=== PATIENT | female | born 1970 | race Caucasian/White ===

== ENCOUNTER 2016-07-30 18:22 | Emergency (ER) | payer OTHER ==
[~2016-07-30] VITALS: Ht 165.1 cm; Wt 85.7 kg
[~2016-07-30 18:22] MED LIST: CIPRO500 M1 PO; FLOMAX0.4 M1 PO; VICODIN 5-3001 EACH PO; ZOFRAN ODT4 M1 SL
--- NOTE | 2016-07-30 19:13 | ED GENERAL ADULT ---
History of Present Illness General Chief Complaint: General Adult Stated Complaint: ANEMIA/WEAKNESS Source: patient, family, old records Exam Limitations: no limitations Vital Signs & Intake/Output Vital Signs & Intake/Output Vital Signs Date Time Temp Pulse Resp B/P B/P Pulse O2 O2 Flow FiO2 Mean Ox Delivery Rate 07/30 2109 98.7 76 18 136/69 99 07/30 1834 99.8 103 18 158/92 98 Room Air Allergies Coded Allergies: No Known Allergies (03/06/16) Reconcile Medications Cranberry Conc/C/Bacill Coag (Cranberry Tablet) (Unknown Strength) TABLET ( Unknown Dose) PO DAILY SUPPLEMENT (Reported) Ibuprofen (Advil) 200 MG CAPSULE 2 CAP PO PRN PAIN/INFLAMMATION (Reported) Iron Carb,Gl/FA/B12/C/Docusate (Ferralet 90 Tablet) 90 MG-1 MG-12 MCG-120 MG-50 MG TABLET 1 TAB PO DAILY SUPPLEMENT (Reported) Triage Note: RECEIVED 46 YO FEMALE WITH HX OF ANEMIA, C/O VAGINAL BLEEDING > THAN 10 DAYS. PT WAS 2 WEEKS LATE FOR PERIOD AND NOW IT WONT START. PT ALSO REPORTS LIGHTHEADEDNESS, PALPITATIONS, WEAKNESS, Triage Nurses Notes Reviewed? yes HPI: Patient states that she always has heavy menstrual cycles and that causes her to be a little bit anemic. Patient takes iron pills however she ran out of them and did not get them refilled. She was approximately 2 weeks late for her last menstrual cycle boat it started on July 16 and has not stopped since. Patient states that she changes her pad multiple times throughout the day. Patient has pelvic cramping that occasionally radiates through her back. Similar symptoms every month with her menstrual cycle. There are no aggravating or mitigating factors. At its worse she rates them as 7 out of 10. Patient noticed that she is now getting palpitations with exertion and dyspnea on exertion. There is no orthopnea. Patient states that she feels weak and fatigued. Patient states that she has difficulty focusing at work. Patient borrowed her son stated that and her resting heart rate is 80 and a increases to 145 when she climbs a flight of stairs. Patient states that it is requested that she had a blood transfusion once in the past however she refused it. Patient states that she is very reluctant have somebody else's blood traveling through her system. Past History Travel History Traveled to [place] past 21 day No Medical History Any Pertinent Medical History? see below for history Neurological: NONE EENT: NONE Cardiovascular: NONE Respiratory: NONE Gastrointestinal: NONE Hepatic: NONE Renal: NONE Musculoskeletal: NONE Psychiatric: NONE Endocrine: NONE Blood Disorders: NONE Cancer(s): NONE SACK SORTER/Reproductive: endometriosis, OVARIAN CYSTS FIBROIDS Surgical History Surgical History: non-contributory Psychosocial History What is your primary language Faroese Tobacco Use: Never used ETOH Use: occasional use Illicit Drug Use: denies illicit drug use Family History Hx Contributory? No Review of Systems Review of Systems Constitutional: Reports: see HPI, weakness. EENTM: Reports: no symptoms. Respiratory: Reports: see HPI, short of breath (WITH EXERTION). Cardiovascular: Reports: see HPI, palpitations. GI: Reports: no symptoms. Genitourinary: Reports: see HPI. Musculoskeletal: Reports: no symptoms. Skin: Reports: no symptoms. Neurological/Psychological: Reports: no symptoms. Hematologic/Endocrine: Reports: see HPI, bleeding. Immunologic/Allergic: Reports: no symptoms. All Other Systems: Reviewed and Negative Physical Exam Physical Exam General Appearance: well developed/nourished, alert, awake, anxious, mild distress Head: atraumatic, normal appearance Eyes: Bilateral: PERRL, EOMI, pale conjunctivae. Ears, Nose, Throat: normal pharynx, normal ENT inspection Neck: normal inspection, supple, full range of motion Respiratory: normal breath sounds, chest non-tender, no respiratory distress, lungs clear Cardiovascular: regular rate/rhythm, normal peripheral pulses Gastrointestinal: normal bowel sounds, soft, non-tender, no organomegaly Back: normal inspection, normal range of motion Extremities: normal capillary refill, normal range of motion, no edema Neurologic/Psych: no motor/sensory deficits, awake, alert, oriented x 3, normal gait, normal mood/affect Skin: intact, warm/dry, VERY PALE Lymphatic: no anterior cervical lupe Core Measures ACS in differential dx? No CVA/TIA Diagnosis: No Severe Sepsis Present: No Septic Shock Present: No Progress Differential Diagnoses I considered the following diagnoses in my evaluation of the patient: [ANEMIA, DYSFUNCTIONAL UTERINE BLEEDING, HEMORRHAGIA] Plan of Care: Orders Procedure Date/time Status URINALYSIS 07/31 1911 Complete HUMAN BETA HCG SCREEN 07/31 1911 Complete COMPREHENSIVE METABOLIC PANEL 07/31 1911 Complete CBC WITHOUT DIFFERENTIAL 07/31 1911 Complete TYPE & SCREEN (NOT X-MATCH) 07/31 1911 Complete EKG 07/30 1837 Active Laboratory Tests 07/30/162031: Urine Color YEL, Urine Clarity CLEAR, Urine pH 6.5, Ur Specific [place] 1.010, Urine Protein NEG, Urine Ketones NEG, Urine Nitrite NEG, Urine Bilirubin NEG, Urine Urobilinogen 0.2, Ur Leukocyte Esterase NEG, Ur Microscopic SEDIMENT EXAMINED, Urine RBC 5-10 H, Ur Epithelial Cells RARE, Urine Hemoglobin MOD H, Urine Glucose NEG 07/30/161936: Anion Gap 11, Estimated GFR > 60, BUN/Creatinine Ratio 15.7, Glucose 92, Calcium 9.1, Total Bilirubin 0.5, AST 32, ALT 47, Alkaline Phosphatase 56, Total Protein 6.0 L, Albumin 3.4 L, Globulin 2.6, Albumin/Globulin Ratio 1.3, Total Beta HCG NEGATIVE, CBC w Diff NO MAN DIFF REQ, RBC 2.63 L, MCV 70.6 L, MCH 22.1 L, RDW 19.8 H, MPV 7.8, Gran % 58.9, Lymphocytes % 27.0, Monocytes % 11.8 H, Eosinophils % 1.8, Basophils % 0.5, Absolute Granulocytes 3.4, Absolute Lymphocytes 1.6, Absolute Monocytes 0.7 H, Absolute Eosinophils 0.1, Absolute Basophils 0, PUBS MCHC 31.3 L Initial ED EKG: none Comments: Pros and cons of blood transfusion have been discussed with the patient and her . Patient will prefer to hold off on any blood transfusion at this time. Patient states that she will rest as much as possible and that she will contact Dr. Waite on Monday morning. Patient knows that she'll need an ultrasound. Patient also promises to return if her symptoms worsen and that she will reconsider a blood transfusion if that were to occur. Departure Departure Disposition: HOME OR SELF CARE Condition: Stable Clinical Impression Primary Impression: Symptomatic anemia Secondary Impressions: Dysfunctional uterine bleeding Menorrhagia Qualifiers: Menorrahagia type: with irregular cycle Qualified Code: N92.1 - Excessive and frequent menstruation with irregular cycle Referrals: RAMU CLAY,ROSA Piper (PCP/Family) CRISTAL CLAY,BLANCA Main Additional Instructions: FOLLOW UP WITH DR. WAITE ON MONDAY RETURN IF SYMPTOMS WORSEN OR FOR ANY CONCERNS Departure Forms: Customer Survey General Discharge Information Critical Care Note Critical Care Note Critical Care Time: non-applicable
[2016-07-30 19:43] LABS: ABSOLUTE BASOPHIL COUNT 0 /CUMM (0.0-0.2); ABSOLUTE EOSINOPHIL COUNT 0.1 /CUMM (0.0-0.7); ABSOLUTE GRANULOCYTE CT 3.4 /CUMM (1.4-6.5); ABSOLUTE LYMPH COUNT 1.6 /CUMM (1.2-3.4); ABSOLUTE MONOCYTE COUNT 0.7 /CUMM (0.10-0.60); BASOPHIL % 0.5 % (0.0-2.0); EOSINOPHIL % 1.8 % (0-5); GRANULOCYTE % 58.9 % (42.2-75.2); MEAN CORPUSCULAR HGB 22.1 PG (27.0-31.0); MEAN CORPUSCULAR HGB CONC 31.3 G/DL (33.0-37.0); MEAN CORPUSCULAR VOLUME 70.6 FL (81.0-99.0); MEAN PLATELET VOLUME 7.8 FL (7.4-10.4); PLATELET COUNT 262 /CUMM (130-400); RBC DISTRIBUTION WIDTH 19.8 % (11.5-14.5); RED BLOOD CELL CT 2.63 /CUMM (4.20-5.40); WHITE BLOOD CELL COUNT 5.8 /CUMM (4.8-10.8)
[2016-07-30 20:08] LABS: HEMATOCRIT 18.6 % (37-47)
[2016-07-30] MEDS ORDERED: FERRALET 90 TA1 EACH PO (20:30)
[2016-07-30] MEDS ORDERED: CRANBERRY TABL1 EACH PO (20:30)
[2016-07-30] MEDS ORDERED: ADVIL200 M1 PO (20:31)
[2016-07-30 21:09] VITALS: BP 136/69
== END 2016-07-30 21:36 ==
LOC: ERH 18:22
PROVIDERS: Emergency Medicine
DX: D64.9 Anemia, unspecified (principal); N93.8 Other specified abnormal uterine and vaginal bleeding; N92.0 Excessive and frequent menstruation with regular cycle
CPT/HCPCS: 81001; 93005; 93010

== ENCOUNTER 2016-08-04 01:57 | Observation (INO) | payer OTHER ==
[~2016-08-04] VITALS: Ht 165.1 cm; Wt 83.9 kg
[~2016-08-04 01:57] MED LIST changes: +ADVIL200 M1 PO; +CRANBERRY TABL1 EACH PO; +FERRALET 90 TA1 EACH PO
--- NOTE | 2016-08-04 14:48 | Operative Report ---
Operative/Inv Procedure Report Surgery Date: 08/04/16 Name of Procedure: D&C cryoablation cervical polypectomy Pre-Operative Diagnosis: Metromenorrhagia severe anemia Post-Operative Diagnosis: Same cervical polyp Estimated Blood Loss: scant Surgeon/Cash Application Clerk: BLANCA BEE MD Anesthesia: moderate sedation Operative/Procedure Note Note: She did note patient was taken the operating room placed on position after adequate anesthesia patient placed in dorsolithotomy position the vagina from dorsal fashion examination anesthesia performed moran speculum was placed into the vagina single-tooth tenaculum was placed on the Intralipid cervix cervix was side 20 Hegar to allow for the insertion of a sharp curette the Carbocaine was used for endocervical curettage sharp curettage and the endometrial lining was performed a polyp forcep was used to remove the polyp on cervix and Bovie coagulation was used at the pedicles the polyp hemostasis was apparent at this point the undue the bladder was catheterized and the bladder was filled with approximately 250 mL normal saline under ultrasound guidance the her option probe was inserted into the vagina into the cervix I the probe was cooled on 8 minutes on each side and cryoablation was performed the probe was heated and removed wants was removed from the vagina on patient was awakened from anesthesia patient was returned spine position to awake from anesthesia and transferred recovery room awake alert with counts correct Findings: Slightly enlarged uterus question of a degenerating fibroid on the back wall of the uterus normal ovaries bilaterally a 1 cm cervical polyp
[2016-08-04 22:11] VITALS: BP 128/70
[2016-08-05 08:14] LABS: ABSOLUTE BASOPHIL COUNT 0 /CUMM (0.0-0.2); ABSOLUTE MONOCYTE COUNT 1.1 /CUMM (0.10-0.60); BASOPHIL % 0 % (0.0-2.0); MEAN CORPUSCULAR HGB CONC 31.8 G/DL (33.0-37.0)
[2016-08-05 08:15] LABS: ABSOLUTE EOSINOPHIL COUNT 0.3 /CUMM (0.0-0.7); ABSOLUTE GRANULOCYTE CT 12.2 /CUMM (1.4-6.5); EOSINOPHIL % 1.7 % (0-5); MEAN CORPUSCULAR HGB 24.1 PG (27.0-31.0); MEAN PLATELET VOLUME 9.2 FL (7.4-10.4); PLATELET COUNT 236 /CUMM (130-400); RBC DISTRIBUTION WIDTH 21.5 % (11.5-14.5)
[2016-08-05 08:16] LABS: HEMATOCRIT 23.4 % (37-47); MEAN CORPUSCULAR VOLUME 75.9 FL (81.0-99.0); RED BLOOD CELL CT 3.08 /CUMM (4.20-5.40); WHITE BLOOD CELL COUNT 14.5 /CUMM (4.8-10.8)
--- NOTE | 2016-08-05 17:38 | ULTRASOUND REPORT ---
EXAMINATION: US INTRAOPERATIVE CLINICAL INFORMATION: 46-year-old female with excessive menstruation, for cryoablation. COMPARISON: None TECHNIQUE: 8 sonographic images were obtained at the time of the procedure. FINDINGS: The uterus is visualized. Linear hypoechogenicity is present within the uterus likely representing the cryoablation probe. IMPRESSION: Intraoperative sonography performed at the time of cryoablation. Full procedural details will be dictated by Dr. Waite.
== END 2016-08-05 12:30 ==
LOC: STS 01:57 → GNO 20:18 → PACUH 20:18 → ENRESERV 20:31 → GNO 21:40
PROVIDERS: ADMIT Specialist
DX: N92.1 Excessive and frequent menstruation with irregular cycle (principal); D64.9 Anemia, unspecified; K21.9 Gastro-esophageal reflux disease without esophagitis
CPT/HCPCS: 76998; 81025; 86920; 88305; G0378; J0131; J1630; J1885; J2405; J2765; P9016

== ENCOUNTER 2017-04-26 17:07 | Inpatient (IN) | payer OTHER ==
[~2017-04-26] VITALS: Ht 165.1 cm; Wt 77.1 kg
[~2017-04-26 17:07] MED LIST changes: +KETOROLAC TROME10 M1 PO; +LEVSIN-SL0.125 MG SL
[2017-04-26 18:55] LABS: ABSOLUTE BASOPHIL COUNT 0 /CUMM (0.0-0.2); ABSOLUTE EOSINOPHIL COUNT 0.1 /CUMM (0.0-0.7); ABSOLUTE GRANULOCYTE CT 2.9 /CUMM (1.4-6.5); ABSOLUTE LYMPH COUNT 0.9 /CUMM (1.2-3.4); ABSOLUTE MONOCYTE COUNT 0.3 /CUMM (0.10-0.60); BASOPHIL % 0.8 % (0.0-2.0); EOSINOPHIL % 1.8 % (0-5); GRANULOCYTE % 69.5 % (42.2-75.2); HEMATOCRIT 38.3 % (37-47); MEAN CORPUSCULAR HGB 27.8 PG (27.0-31.0); MEAN CORPUSCULAR VOLUME 84.1 FL (81.0-99.0); MEAN PLATELET VOLUME 10.1 FL (7.4-10.4); PLATELET COUNT 233 /CUMM (130-400); RBC DISTRIBUTION WIDTH 14.5 % (11.5-14.5); RED BLOOD CELL CT 4.56 /CUMM (4.20-5.40); WHITE BLOOD CELL COUNT 4.2 /CUMM (4.8-10.8)
--- NOTE | 2017-04-26 20:46 | ED GENERAL ADULT ---
See Addendum History of Present Illness General Chief Complaint: General Adult Stated Complaint: "IM IN PAIN AND MY DOCTOR TOLD ME TO COME HERE" Source: patient, family, old records Exam Limitations: no limitations Vital Signs & Intake/Output Vital Signs & Intake/Output Vital Signs Date Time Temp Pulse Resp B/P B/P Pulse O2 O2 Flow FiO2 Mean Ox Delivery Rate 04/26 2153 98.9 63 20 151/77 100 Room Air 04/26 1711 98.6 74 18 167/85 98 Room Air Allergies Coded Allergies: morphine (NAUSEA / VOMITING 08/04/16) Reconcile Medications Cranberry Conc/C/Bacill Coag (Cranberry Tablet) (Unknown Strength) TABLET ( Unknown Dose) PO DAILY SUPPLEMENT (Reported) Hyoscyamine Sulfate (Levsin-Sl) 0.125 MG TAB.SUBL 1-2 TAB SL Q4P PRN abdominal pain Iron Carb,Gl/FA/B12/C/Docusate (Ferralet 90 Tablet) 90 MG-1 MG-12 MCG-120 MG-50 MG TABLET 1 TAB PO DAILY SUPPLEMENT (Reported) Ketorolac Tromethamine 10 MG TABLET 1 TAB PO Q6P PRN pain Ondansetron (Zofran Odt) 4 MG TAB.RAPDIS 1 TAB SL TID PRN nausea Triage Note: 46 YO FEMALE TO TRAIGE C/O RUQ PAIN, STATES HX OF GALLSTONES. STATES WAS GIVEN TORADOL ON 04/03 WHEN SHE WAS SEEN AND STATE SHE THINKS SHE IS ?ALLERGIC BECAUSE SHE VOMTIED RIGHT AFTER SHE TOOK THE MEDICATION. +NAUSEA. STATES HASNT SEEN A GI DOCTOR YET. STATES SHE HASNT BEEN ABLE TO EAT/DRINK. Triage Nurses Notes Reviewed? yes Onset: Gradual Duration: worse persistent since (2 DAYS) Timing: recent history Injury Environment: home Severity: severe Severity Numbers: 10 No Modifying Factors: none HPI: Patient is a 46-year-old female presenting to the emergency department with chief complaint of upper abdominal pain that radiates to the right side of the chest with associated nausea getting worse for the past 2 days. Symptoms worsened after eating zucchini with cheese on top of it. Patient reports she was seen and evaluated for similar symptoms 1 month ago, was told she had gallstones. She was suppose to follow-up with her primary care physician but has not made an appointment yet. She's been eating a bland diet up until 2 days ago. Positive vomiting. No blood in the emesis. Denies diarrhea. Has not been taking anything at home to help with discomfort. Positive decreased by mouth intake for solids and liquids secondary to abdominal discomfort. Denies palpitations or shortness of breath. She had an appointment with her primary care physician today and was in the waiting room but symptoms worsen so they suggested she come to the emergency department for evaluation. (Bernadette Parham) Past History Travel History Traveled to [place] past 21 day No Medical History Any Pertinent Medical History? 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 No (Bernadette Parham) Review of Systems Review of Systems Constitutional: Reports: see HPI. Comments Review of systems: See HPI, All other systems negative. Constitutional, no chills fever or weight loss HEENT: No visual changes no sore throat no congestion Cardiovascular: No palpitation , orthopnea or ankle swelling Skin, no jaundice no rashes Respiratory: No dyspnea cough sputum or hemoptysis GI: No diarrhea : No dysuria No hematuria Muscle skeletal: no back pain, no neck pain, Neurologic: No numbness no confusion, no headaches Psych: No stress anxiety or depression,. Heme/endocrine: No bruising no bleeding no polyuria or polydipsia Immunology: No splenectomy or history of AIDS (Bernadette Parham) Physical Exam Physical Exam General Appearance: well developed/nourished, no apparent distress, alert, awake , APPEARS UNCOMFORTABLE Comments: Well-developed well-nourished person in no acute distress HEENT: Atraumatic, normocephalic. Neck: Normal inspection Back: Nontender, no CVA tenderness. Cardiovascular: Regular rate and rhythms no murmurs rubs or gallops, normal JVP Respiratory: Chest nontender. No respiratory distress.breath sounds clear to auscultation bilaterally Abdomen: Soft, tender palpation in the epigastric and right upper quadrant, positive Schultz's sign, moderate guarding. No rebound tenderness. Nondistended , no appreciable organomegaly. Normal bowel sounds. No ascites Extremity: No edema Neuro: Alert oriented x3 Skin: No appreciable rash on exposed skin, skin is warm and dry. Psych: Mood and affect is normal, memory and judgment is normal. Core Measures ACS in differential dx? Yes CVA/TIA Diagnosis: No Sepsis Present: No Sepsis Focused Exam Completed? No (Xiomy BEVERLY,Bernadette) Progress Differential Diagnoses I considered the following diagnoses in my evaluation of the patient: Cholangitis, cholecystitis, pancreatitis, choledocholithiasis, gastritis, peptic ulcer disease, H. pylori Plan of Care: Orders Procedure Date/time Status Nothing by Mouth 04/27 B Active HEPATIC FUNCTION PANEL 04/27 06 Active CBC WITHOUT DIFFERENTIAL 04/27 0600 Active Pathway - chart 04/26 2307 Active House Staff 04/26 2307 Active Patient Data 04/26 2307 Active Code Status 04/26 2307 Active ED Holding Orders 04/26 2250 Active Admit to inpatient 04/26 2250 Active Vital Signs 04/26 2250 Active Code Status 04/26 2250 Complete Patient Data 04/26 2246 Active Add-on Test (ER Only) 04/26 2139 Active Add-on Test (ER Only) 04/26 2138 Active URINALYSIS 04/26 2138 Complete EKG 04/26 2138 Active Intake & Output 04/26 2120 Active Add-on Test (ER Only) 04/26 2049 Active TROPONIN LEVEL 04/26 1715 Complete LIPASE 04/26 1715 Complete DIRECT BILIRUBIN 04/26 1715 Complete AMYLASE 04/26 1715 Complete COMPREHENSIVE METABOLIC PANEL 04/26 1713 Complete CBC WITHOUT DIFFERENTIAL 04/26 1713 Complete VTE Mechanical Prophylaxis 04/26 UNK Active Current Medications Sig/Jc Start time Last Medication Dose Stop Time Status Admin Enoxaparin Sodium 40 MG DAILY 04/27 1000 UNVr (Lovenox) Ondansetron HCl 4 MG Q6P PRN 04/26 2315 UNVr (Zofran) Sodium Chloride 1,000 ML Q13H 04/26 2315 UNVr 04/26 (Normal Saline 0.9%) 04/28 0114 2326 Sodium Chloride 1,000 ML BOLUS ONE 04/26 2145 AC 04/26 (Normal Saline 0.9%) 04/26 2344 2152 Laboratory Tests 04/26/17 2150: Urinalysis MOD H, Urine Color YEL, Urine Clarity HAZY H, Urine pH 6.0, Ur Specific [place] 1.015, Urine Protein NEG, Urine Ketones 15 H, Urine Nitrite NEG, Urine Bilirubin POS@ICTO H, Urine Urobilinogen 4.0 H, Ur Leukocyte Esterase TRACE H, Ur Microscopic SEDIMENT EXAMINED, Urine RBC RARE, Urine WBC 1 -3 H, Ur Epithelial Cells MOD H, Urine Bacteria MOD H, Urine Mucus FEW, Urine Hemoglobin TRACE-INTACT, Urine Glucose NEG 04/26/17 1715: Anion Gap 13, Estimated GFR > 60, BUN/Creatinine Ratio 12.5, Glucose 104 H, Calcium 9.7, Total Bilirubin 4.8 H, Direct Bilirubin 2.7 H, AST 861 H, ALT 972 H, Alkaline Phosphatase 200 H, Troponin I 0.02, Total Protein 7.6, Albumin 4.6, Globulin 3.0, Albumin/Globulin Ratio 1.5, Amylase 32, Lipase 71, CBC w Diff NO MAN DIFF REQ, RBC 4.56, MCV 84.1, MCH 27.8, RDW 14.5, MPV 10.1, Gran % 69.5, Lymphocytes % 20.5, Monocytes % 7.4, Eosinophils % 1.8, Basophils % 0.8, Absolute Granulocytes 2.9, Absolute Lymphocytes 0.9 L, Absolute Monocytes 0.3, Absolute Eosinophils 0.1, Absolute Basophils 0, PUBS MCHC 33.0 Diagnostic Imaging: Viewed by Me: Ultrasound. Discussed w/RAD: Ultrasound. Radiology Impression: PATIENT: CHINO PORTILLO PRESENT AGE: 46 PATIENT ACCOUNT NO: [id number] : 68 LOCATION: [facility] ORDERING PHYSICIAN: Makenna Thurston MD SERVICE DATE: 04/26/17 EXAM TYPE: US - US-LIMITED ABDOMEN EXAMINATION: ABDOMINAL ULTRASOUND LIMITED CLINICAL INFORMATION: Abdominal pain. COMPARISON: 04/03/2017. TECHNIQUE: Real-time imaging of the right upper quadrant abdominal viscera. FINDINGS: PANCREAS: The visualized pancreatic head and body are normal in appearance. The remainder of the pancreas is obscured from visualization by the overlying bowel gas. LIVER: The liver is of normal size and diffuse increased echogenicity without focal lesions nor intrahepatic biliary ductal dilation. GALLBLADDER: There are several small calculi within the gallbladder lumen without wall thickening or pericholecystic fluid. COMMON BILE DUCT: Normal in caliber measuring 0.5 cm in diameter. RIGHT KIDNEY: There is no hydronephrosis. There is a 6 mm nonobstructive calculus within the upper pole. The kidney measures 10.6 cm in maximum dimension. FREE FLUID: None. IMPRESSION: Liver of diffuse increased echogenicity without focal lesions. The appearance is nonspecific, but consistent with fatty infiltration. Cholelithiasis without sonographic manifestations of cholecystitis. Nonobstructive right renal calculus. DICTATED BY: Leonardo Suárez MD DATE/TIME DICTATED:04/26/172101 FARM CREW MEMBER: JACQUE DATE/TIME TRANSCRIBED:04/26/172101 CONFIDENTIAL, DO NOT COPY WITHOUT APPROPRIATE AUTHORIZATION. <Electronically signed in Other Vendor System> SIGNED BY: Leonardo Suárez MD 04/26/172110 Initial ED EKG: NSR Comments: 04/26/2017 10:25:[address] Burt, on-call gastroenterology, recommending we hydrate patient, pain control. Recommending we hold off antibiotics at this point since patient's vitals are stable and patient has no elevation in white blood cell count. Recommending potential ERCP because bilirubin is over 4. Ultrasound does not show any dilation of, and bile ducts or signs of acute cholecystitis. (Bernadette Parham) Departure Departure Time of Disposition: 2226 Disposition: STILL A PATIENT Condition: Stable Clinical Impression Primary Impression: Transaminitis Secondary Impressions: Gallstones, Hyperbilirubinemia Referrals: Cruzito Gilmore MD (PCP/Family) Departure Forms: Customer Survey General Discharge Information Admission Note Spoke With: aMriya Mosqueda MD Documentation of Exam: Documentation of any treatments & extenuating circumstances including Concerns Regarding Discharge (functional status, medication knowledge or non-compliance, living conditions, etc.) that warrant an admission rather than observation: Patient requiring IV hydration, IV pain management, nothing by mouth, GI consultation, MRCP versus ERCP, discharge at this time is medically harmful could lead to cholangitis IF THERE IS AN obstructing stone, repeat LFTs in the morning after hydration and nothing by mouth status. (Bernadette Parham) PA/SEWING MACHINE OPERATOR P[employer]ER [employer]AGS Co-Sign Statement Statement: ED Attending supervision documentation- [X] I saw and evaluated the patient. I have also reviewed all the pertinent lab results and diagnostic results. I agree with the findings and the plan of care as documented in the PA's/SEWING MACHINE OPERATOR [employer]AGS's documentation. [X] I have reviewed the ED Record and agree with the PA's/SEWING MACHINE OPERATOR [employer]S's documentation. [] Additions or exceptions (if any) to the PAs/SEWING MACHINE OPERATOR [employer]AGS's note and plan are summarized below: [] (Karena CLAY,Makenna) Critical Care Note Critical Care Note Critical Care Time: non-applicable (Bernadette Parham)
--- NOTE | 2017-04-26 21:11 | ULTRASOUND REPORT ---
EXAMINATION: ABDOMINAL ULTRASOUND LIMITED CLINICAL INFORMATION: Abdominal pain. COMPARISON: 04/03/2017. TECHNIQUE: Real-time imaging of the right upper quadrant abdominal viscera. FINDINGS: PANCREAS: The visualized pancreatic head and body are normal in appearance. The remainder of the pancreas is obscured from visualization by the overlying bowel gas. LIVER: The liver is of normal size and diffuse increased echogenicity without focal lesions nor intrahepatic biliary ductal dilation. GALLBLADDER: There are several small calculi within the gallbladder lumen without wall thickening or pericholecystic fluid. COMMON BILE DUCT: Normal in caliber measuring 0.5 cm in diameter. RIGHT KIDNEY: There is no hydronephrosis. There is a 6 mm nonobstructive calculus within the upper pole. The kidney measures 10.6 cm in maximum dimension. FREE FLUID: None. IMPRESSION: Liver of diffuse increased echogenicity without focal lesions. The appearance is nonspecific, but consistent with fatty infiltration. Cholelithiasis without sonographic manifestations of cholecystitis. Nonobstructive right renal calculus.
--- NOTE | 2017-04-26 22:48 | History & Physical ---
Chris CLAY,[facility] 04/26/17 2248: General Information and HPI MD Statement: I have seen and personally examined CHINO PORTILLO and documented this H&P. The patient is a 46 year old F who presented with a patient stated chief complaint of [abd pain]. Source of Information: patient Exam Limitations: no limitations History of Present Illness: The patient is 46-year-old female with past medical history of endometriosis fibroids and ovarian cyst, iron deficiency anemia secondary to menorrhagia. She is presenting today to [facility] ED on 04/26/2017 with complaint of abdominal pain. The patient was in usual state of health until this Joel when she started experiencing epigastric and right upper quadrant abdominal pain, prompting a visit to [facility] ED. CT scan was done showed evidence of cholelithiasis without acute cholecystitis. She was discharged on ketorolac and Zofran. Since then patient has been experiencing abdominal pain on and off. For the past 3 days now patient has experiencing epigastric and right upper quadrant pain radiating down to umbilicus. The pain has been in constant pain for past 2 days, then resolved a bit, patient had some relief on Monday morning, it felt like soreness. But now patient is presenting with excruciating pain 10/10 which is unbearable and having trouble breathing because of the pain. The onset of pain was sudden and was radiating like a band around her upper abdomen. Patient has tried 5 Advil 200 mg pills over the course of 3 days for pain relief. The pain is associated with nausea , patient has poor oral intake and decreased appetite. She has been consuming bland diet for the past 3 days. Today patient went to PCP who advised her to visit the ER for further evaluation. Review of system is negative for fever chills, urinary symptoms. However patient reports dark urine. 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 MOTHER (HTN, HLD). BROTHER (Cholecystitis). Psychosocial History Where do you live? Home Who Do You Live With? spouse Services at Home: None Primary Language: Khmer Smoking Status: Never Smoked ETOH Use: denies use Illicit Drug Use: denies illicit drug use Functional Ability ADLs Independent: dressing, eating, toileting, bathing. Ambulation: independent IADLs Independent: shopping, housework, finances, food prep, telephone, transportation , medication admin. Review of Systems Review of Systems Constitutional: Denies: chills, diaphoresis, malaise. EENTM: Reports: no symptoms. Cardiovascular: Reports: chest pain. Denies: orthopena, palpitations. Respiratory: Denies: cough, sputum production, stridor. GI: Reports: abdominal pain, nausea. Genitourinary: Reports: no symptoms. Musculoskeletal: Reports: no symptoms. Skin: Reports: no symptoms. Exam & Diagnostic Data Last 24 Hrs of Vital Signs/I&O Vital Signs Date Time Temp Pulse Resp B/P B/P Pulse O2 O2 Flow FiO2 Mean Ox Delivery Rate 04/26 2152 98.9 63 20 151/77 100 Room Air 04/26 1710 98.6 74 18 167/85 98 Room Air Physical Exam General Appearance Alert, Oriented X3, Cooperative Skin No Rashes, yellowish color jaundiced HEENT Atraumatic, PERRLA, EOMI, Mucous Membr. moist/pink Neck Supple, No JVD Cardiovascular Normal S1, Normal S2 Lungs Clear to Auscultation, Normal Air Movement Abdomen Normal Bowel Sounds, Soft, epigastric and RUQ tenderness, schultz's sign negative Neurological Normal Speech Extremities No Edema Last 24 Hrs of Labs/Marck: Laboratory Tests 04/26/172149: Urinalysis MOD H, Urine Color YEL, Urine Clarity HAZY H, Urine pH 6.0, Ur Specific [place] 1.015, Urine Protein NEG, Urine Ketones 15 H, Urine Nitrite NEG, Urine Bilirubin POS@ICTO H, Urine Urobilinogen 4.0 H, Ur Leukocyte Esterase TRACE H, Ur Microscopic SEDIMENT EXAMINED, Urine RBC RARE, Urine WBC 1 -3 H, Ur Epithelial Cells MOD H, Urine Bacteria MOD H, Urine Mucus FEW, Urine Hemoglobin TRACE-INTACT, Urine Glucose NEG 01/17/18 1715: Anion Gap 13, Estimated GFR > 60, BUN/Creatinine Ratio 12.5, Glucose 104 H, Calcium 9.7, Total Bilirubin 4.8 H, Direct Bilirubin 2.7 H, AST 861 H, ALT 972 H, Alkaline Phosphatase 200 H, Troponin I 0.02, Total Protein 7.6, Albumin 4.6, Globulin 3.0, Albumin/Globulin Ratio 1.5, Amylase 32, Lipase 71, CBC w Diff NO MAN DIFF REQ, RBC 4.56, MCV 84.1, MCH 27.8, RDW 14.5, MPV 10.1, Gran % 69.5, Lymphocytes % 20.5, Monocytes % 7.4, Eosinophils % 1.8, Basophils % 0.8, Absolute Granulocytes 2.9, Absolute Lymphocytes 0.9 L, Absolute Monocytes 0.3, Absolute Eosinophils 0.1, Absolute Basophils 0, PUBS MCHC 33.0 Diagnostic Data Other Results US-LIMITED ABDOMEN IMPRESSION: Liver of diffuse increased echogenicity without focal lesions. The appearance is nonspecific, but consistent with fatty infiltration. Cholelithiasis without sonographic manifestations of cholecystitis. Nonobstructive right renal calculus. Assessment/Plan Assessment: The patient is 46-year-old female with past medical history of endometriosis fibroids and ovarian cyst, iron deficiency anemia secondary to menorrhagia. She is presenting today to [facility] ED on 04/26/2017 with complaint of abdominal pain. -VS WNL -Pertinent labs WBC count 3.2, total bilirubin 4.8, direct bilirubin 2.7, AST 861, ALT 972, ALP 1 phosphate 200. UA positive for urobilinogen, urine hemoglobin bilirubin, nitrate negative leukoesterase small moderate bacteria and moderate amount of epithelial cells -Ultrasound findings dictated above -In ED patient received Zofran 12 are normal saline 1L The pt is being admitted to general medicine floor and is being treated and evaluated for following conditions #Hyperbilirubinemia and transaminitis likely 2/2 choledocholithiasis The patient is presenting with above dictated labs and abdominal pain. Ultrasound does not show evidence of on intrahepatic biliary duct dilation or cholecystitis. The patient needs further evaluation. During her last visit to ED her LFTs were within normal limits though she had leukocytosis. -Monitor fever and WBC curve -Repeat LFTs in am -IVF -Pain control with morphine and Dilaudid avoid hepatotoxins -GI consult in am -MRCP versus ERCP -Nothing by mouth in anticipation of procedure -If patient spikes fever, blood cultures, unasyn -Surgical consult for elective inpatient versus outpatient cholecystectomy #Full code/nothing by mouth/DVT prophylaxis Lovenox As Ranked By This Provider Problem List: 1. Hyperbilirubinemia 2. Transaminitis 3. Gallstones Core Measures/Misc (12/25) Acute Coronary Syndrome ACS Diagnosis: No Congestive Heart Failure Congestive Heart Failure Diagnosis No Cerebrovascular Accident CVA/TIA Diagnosis: No VTE (View Protocol) VTE Risk Factors Age>40 No Mechanical VTE Prophylaxis d/t N/A MechProphylax Ordered No VTE Pharm Prophylaxis d/t NA PharmProphylax ordered Sepsis (View protocol) Sepsis Present: No Rubens Hu 04/26/17 6429: Resident Review Statement Resident Statement: discussed with internet manager Other Findings: 46-year-old woman with past medical history of endometriosis, fibroids and left ovarian cyst, history of iron deficiency anemia and cholelithiasis. She presented to ER with complaint of upper abdominal pain (mainly epigastric and right upper quadrant) radiating down to a umbilical area. According to patient her pain started first time on [place]. Pain was sudden in onset onset and intermittent associated with difficulty breathing. She went to ER, had CT abdomen and pelvis that showed cholelithiasis without CT evidence of acute cholecystitis. Her LFTs were normal at that time. She was discharged from ER on pain and nausea medications. Since then she was watching her diet. This time her pain started again 3 days ago, at night. Pain was sudden in onset wrapping around her upper abdomen and it was difficult for her to breathe. She tried Advil with minimal relief. Pain was constant associated with nausea. She also tried ketorolac, Zofran and also took Tylenol. She saw her PCP this morning who recommended her to go to ER for further evaluation. Upon arrival to ER her temperature was 98.6, pulse 74, respiratory rate 18, blood pressure 167/85 and oxygen saturation 98% on room air. Pertinent labs are total bilirubin 4.8, AST at 61, ALT 972, alkaline phosphatase 200. Right upper quadrant ultrasound showed fatty infiltration of liver, cholelithiasis without evidence of cholecystitis and nonobstructive right renal stone. In ER she got 1 L bolus of normal saline, Toradol 30 mg IV 1 and Zofran. Upon our evaluation she is complaining of heartburn and requesting something for sleep. Her epigastric pain is better. She denies any fever, chills, diarrhea, constipation , any change in the color of her stool. She reports having dark urine. Physical exam: Alert, awake and oriented 3. Heart regular rate and rhythm without murmurs. Lungs are clear. Abdomen is soft nontender, nondistended, Schultz sign negative. Extremities no edema. Problem list 1. Hyperbilirubinemia and transaminitis. Ultrasound did not show any choledocholithiasis or intrahepatic biliary duct dilation. She might have passed a stone. We can do MRCP in the morning For better look of biliary system. No sonographic evidence of cholecystitis. Plan * Admission to general medicine floor * Watch for fever and other signs of sepsis * Pain management * GI consult in a.m. * MRCP vs ERCP in the morning * We will keep her nothing by mouth for now. Continue IV hydration * Repeat LFTs in a.m. * DVT prophylaxis * Full code Panda,Aartee 04/27/17 0338: Attending MD Review Statement Attending Statement Attending MD Statement: examined this patient, discuss w/resident/PA/LCAC OPERATOR, agreed w/resident/PA/LCAC OPERATOR, reviewed EMR data (avail), reviewed images, amended to note Attending Assessment/Plan: CC: Right upper quadrant pain PMH: Endometriosis, fibroid, iron deficiency anemia currently not on iron supplementation Patient came to ER for 3 day duration of right upper quadrant pain, initially intermittent started on Monday gradually subsided Monday evening but from Monday patient's pain has been persistent, bandlike radiating over abdomen, associated with nausea, one episode of vomiting on Monday, associated with watery stools, nonbloody as patient was noticing severe pain she came to ER. She noticed a similar kind of pain but more so in the upper back area around Christmastime at that time she was evaluated in ER and was prescribed pain medications, which did not help her this time. Denies any fever, chills, upper respiratory symptoms, cough or expectoration. Vitals: T max 98.9, pulse 74, RR 18, blood pressure 167/85, saturating 98% on room air On exam:A O 3, cooperative, no acute distress, neck supple, JVD normal, no lymphadenopathy, mucosa moist, no focal neurological deficit, no dependent edema , no obvious skin rashes or inflammation CVS: S1-S2, RRR. RS: Clear to auscultate bilaterally. Abdomen: Soft, mild tenderness right upper quadrant, Schultz's sign negative, ND, bowel sounds present. Labs: WBC 4.2, hemoglobin 12.7, hematocrit 38.3, platelet 233, sodium 142, but ashen 3.9, chloride 102, bicarbonate 27, BUN 10, creatinine 0.8, glucose 104, calcium 9.7, bili 4.8, direct bilirubin 2.7, AST 861, ALT 972, alkaline phosphatase 200, troponin 0.02, albumin 4.6, lipase 71, Urine positive for bilirubin urobilinogen trace leukocyte esterase Abdominal ultrasound: Liver of diffuse increased echogenicity without focal lesions. The appearance is nonspecific, but consistent with fatty infiltration. Cholelithiasis without sonographic manifestations of cholecystitis. Nonobstructive right renal calculus. Assessment and plan 46-year-old female with no significant past medical history presented in ER for right upper quadrant pain initially intermittent is last 3 days now constant, worsening over time, bandlike, worse with deep breathing or any much movement. Patient had similar pain episode but more so in upper back around Christmastime which resolved now this is second his episode. On Monday patient had one episode of vomiting and few watery stools but nonbloody. Patient has tenderness to touch on right upper quadrant but Schultz's sign negative, bowel sounds present. Labs show significant transaminitis, elevated alkaline phosphatase, significantly elevated bilirubin more so direct, lipase is normal. Patient drinks alcohol very occasionally; last drink, maybe minimal at Joel time. Patient may have biliary colic, choledocholithiasis or may have passed a stone. Ultrasound does not show any dilated bile duct or evidence of early cystitis but there is cholelithiasis on ultrasound. We'll obtain GI opinion regarding MRCP versus ERCP for further evaluation + Significant transaminitis with elevated bilirubin and alkaline phosphatase probably secondary to choledocholithiasis but not evident on ultrasound needs further evaluation. Patient does not drink alcohol, given the tenderness and right upper quadrant other causes of hepatitis or less likely. - Admit to general medicine - Continue gentle hydration - Adequate pain control - Repeat CBC, BMP, LFT in a - GI consult in a.m. - Blood culture and IV Unasyn if significant leukocytosis with shift or fever spike - DVT prophylaxis
--- NOTE | 2017-04-27 03:40 | Admission Certification ---
Admission Certification Certification Statement - As attending physician, I certify that at the time of - admission, based on clinical presentation, severity of - symptoms, need for further diagnostic testing and - therapeutic interventions, and risk of adverse outcomes - without in-hospital treatment, in my clinical assessment, - this patient requires an acute hospital stay for a minimum - of two nights or longer. I have also considered psychsocial - factors such as support system, advanced age, financial - issues, cognitive issues, and failed out-patient treatments, - past re-admission history, safety of patient, and lack of - compliance as applicable. Specific rationale supporting this admission is: Significant transaminitis with elevated bilirubin, suspected choledocholithiasis
[2017-04-27 06:04] LABS: ABSOLUTE BASOPHIL COUNT 0 /CUMM (0.0-0.2); ABSOLUTE EOSINOPHIL COUNT 0.2 /CUMM (0.0-0.7); ABSOLUTE GRANULOCYTE CT 2.2 /CUMM (1.4-6.5); ABSOLUTE LYMPH COUNT 1.2 /CUMM (1.2-3.4); ABSOLUTE MONOCYTE COUNT 0.3 /CUMM (0.10-0.60); BASOPHIL % 0.6 % (0.0-2.0); EOSINOPHIL % 3.8 % (0-5); HEMATOCRIT 34.2 % (37-47); MEAN CORPUSCULAR HGB CONC 33.8 G/DL (33.0-37.0); PLATELET COUNT 204 /CUMM (130-400); RBC DISTRIBUTION WIDTH 14.5 % (11.5-14.5); RED BLOOD CELL CT 4.12 /CUMM (4.20-5.40); WHITE BLOOD CELL COUNT 3.9 /CUMM (4.8-10.8)
--- NOTE | 2017-04-27 12:14 | Cons- General Surgery ---
See Addendum General Information and HPI Consulting Request Date of Consult: 04/27/17 Requested By: Mariya Mosqueda MD Reason for Consult: Need for cholecystectomy Source of Information: patient Exam Limitations: no limitations History of Present Illness: This is a 46 year-old female with a history of endometriosis, fibroids and iron deficiency anemia due to menorrhagia who was admitted yesterday with hyperbilirubinemia and transaminitis. She states developed abdominal pain 4 days ago which located in the right upper quadrant and epigastric region and initally intermittent in nature, then progressively worsened on Monday and was located in a band like distribution with assocaited nausea, one episode of vomiting the soup she had and a decreased appetite. She reports similar episode on 04/03/17 where she presented to the ER at [place] with flank/epigastric pain and was found on imaging to have findings of cholelithiasis on ultrasound and was discharged with Toradol and Zofran. In the ER yesterday, she had was noted to have hyperbilirubinemia and transaminitis and findings of cholelithiasis without cholecystitis. Labs were repeated this morning, which revealed improved bilirubin and LFTs. In addition, her abdominal pain has since resolved. She has been NPO since last night and recieved Lovenox at 10:30 am. Allergies/Medications Allergies: Coded Allergies: morphine (NAUSEA / VOMITING 08/04/16) Current Medications: Current Medications Sig/Jc Start time Last Medication Dose Route Stop Time Status Admin Enoxaparin Sodium 40 MG DAILY 04/27 1000 AC 04/27 SC 1033 Ketorolac 0 .STK-MED ONE 04/26 2210 DC Tromethamine .ROUTE Ketorolac 30 MG ONCE ONE 04/26 2200 DC 04/26 Tromethamine IV 04/26 2201 2230 Lorazepam 1 MG ONCE ONE 04/27 1145 UNVr IV 04/27 1146 Melatonin 3 MG ONE TIME ONE 04/27 0015 DC 04/27 PO 04/27 0016 0115 Morphine Sulfate 2 MG Q6P PRN 04/27 0045 AC IV Omeprazole 0 .STK-MED ONE 04/27 0109 DC PO Omeprazole 20 MG ONE TIME ONE 04/27 0030 DC PO 04/27 0031 Ondansetron HCl 4 MG ONCE ONE 04/27 1145 UNVr IV 04/27 1146 Ondansetron HCl 4 MG Q6P PRN 04/26 2315 AC IV Ondansetron HCl 0 .STK-MED ONE 04/26 2210 DC .ROUTE Ondansetron HCl 4 MG ONCE ONE 04/26 2200 DC 04/26 IV 04/26 2201 2230 Sodium Chloride 1,000 ML Q13H 04/26 2315 AC 04/26 IV 04/28 0114 2326 Sodium Chloride 1,000 ML BOLUS ONE 04/26 2145 DC 04/26 IV 04/26 2344 2152 Past History Medical History Neurological: NONE EENT: NONE Cardiovascular: NONE Respiratory: NONE Gastrointestinal: NONE Hepatic: NONE Renal: NONE Musculoskeletal: NONE Psychiatric: NONE Endocrine: NONE Blood Disorders: NONE Cancer(s): NONE 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 MOTHER (HTN, HLD). BROTHER (Cholecystitis). Psychosocial History Where Do You Live? Home Who Do You Live With? spouse Services at Home: None Primary Language: German Smoking Status: Never Smoked ETOH Use: denies use Illicit Drug Use: denies illicit drug use Functional Ability ADLs Independent: dressing, eating, toileting, bathing. Ambulation: independent IADLs Independent: shopping, housework, finances, food prep, telephone, transportation , medication admin. Review of Systems Review of Systems: Constitutional: Denies: no symptoms. EENTM: Reports: no symptoms. Cardiovascular: Reports: no symptoms. Respiratory: Denies: no symptoms. GI: Reports: abdominal pain, nausea, vomiting. Genitourinary: Reports: no symptoms. Musculoskeletal: Reports: no symptoms. Skin: Reports: no symptoms. Exam & Diagnostic Data Vital Signs and I&O Vital Signs Date Time Temp Pulse Resp B/P B/P Pulse O2 O2 Flow FiO2 Mean Ox Delivery Rate 04/27 0608 97.0 52 20 121/66 98 Room Air 04/26 2152 98.9 63 20 151/77 100 Room Air 04/26 1711 98.6 74 18 167/85 98 Room Air Intake & Output 04/27 1600 04/27 0800 04/27 0000 04/26 1600 04/26 0800 04/26 0000 Intake Total 600 Output Total 350 Balance 250 Intake, IV 600 Intake, Oral 0 Output, Urine 350 Patient 169 lb Weight Weight Reported by Patient Measurement Method Physical Exam: Gen - awake an alert accompained by her family in NAD Cardiac - S1S2 noted, RRR Lungs - CTAB Abdomen - soft with umbilical piercing, hypoactive bowel sounds, tender to deep palpation in RUQ with positive Gassaway sign Ext - no edema or calf tenderness B/L Last 24 Hours of Labs: Laboratory Tests 04/27 04/27 0600 0549 Chemistry Sodium (137 - 145 mmol/L) Cancelled 143 Potassium (3.5 - 5.1 mmol/L) Cancelled 3.6 Chloride (98 - 107 mmol/L) Cancelled 107 Carbon Dioxide (22 - 30 mmol/L) Cancelled 22 Anion Gap (5 - 16) Cancelled 13 BUN (7 - 17 mg/dL) Cancelled 7 Creatinine (0.5 - 1.0 mg/dL) Cancelled 0.7 Estimated GFR (>60 ml/min) > 60 BUN/Creatinine Ratio (7 - 25 %) Cancelled 10.0 Total Bilirubin (0.2 - 1.3 mg/dL) 2.2 H Direct Bilirubin (< 0.4 mg/dL) 0.7 H AST (14 - 36 U/L) 539 H ALT (9 - 52 U/L) 728 H Alkaline Phosphatase (<127 U/L) 170 H Total Protein (6.3 - 8.2 g/dL) 6.2 L Albumin (3.5 - 5.0 g/dL) 3.6 Hematology CBC w Diff NO MAN DIFF REQ WBC (4.8 - 10.8 /CUMM) 3.9 L RBC (4.20 - 5.40 /CUMM) 4.12 L Hgb (12.0 - 16.0 G/DL) 11.6 L Hct (37 - 47 %) 34.2 L MCV (81.0 - 99.0 FL) 83.0 MCH (27.0 - 31.0 PG) 28.0 RDW (11.5 - 14.5 %) 14.5 Plt Count (130 - 400 /CUMM) 204 MPV (7.4 - 10.4 FL) 9.0 Gran % (42.2 - 75.2 %) 56.0 Lymphocytes % (20.5 - 51.1 %) 31.3 Monocytes % (1.7 - 9.3 %) 8.3 Eosinophils % (0 - 5 %) 3.8 Basophils % (0.0 - 2.0 %) 0.6 Absolute Granulocytes (1.4 - 6.5 /CUMM) 2.2 Absolute Lymphocytes (1.2 - 3.4 /CUMM) 1.2 Absolute Monocytes (0.10 - 0.60 /CUMM) 0.3 Absolute Eosinophils (0.0 - 0.7 /CUMM) 0.2 Absolute Basophils (0.0 - 0.2 /CUMM) 0 PUBS MCHC (33.0 - 37.0 G/DL) 33.8 04/26 04/26 2150 1715 Chemistry Sodium (137 - 145 mmol/L) 142 Potassium (3.5 - 5.1 mmol/L) 3.9 Chloride (98 - 107 mmol/L) 102 Carbon Dioxide (22 - 30 mmol/L) 27 Anion Gap (5 - 16) 13 BUN (7 - 17 mg/dL) 10 Creatinine (0.5 - 1.0 mg/dL) 0.8 Estimated GFR (>60 ml/min) > 60 BUN/Creatinine Ratio (7 - 25 %) 12.5 Glucose (65 - 99 mg/dL) 104 H Calcium (8.4 - 10.2 mg/dL) 9.7 Total Bilirubin (0.2 - 1.3 mg/dL) 4.8 H Direct Bilirubin (< 0.4 mg/dL) 2.7 H AST (14 - 36 U/L) 861 H ALT (9 - 52 U/L) 972 H Alkaline Phosphatase (<127 U/L) 200 H Troponin I (< 0.11 ng/ml) 0.02 Total Protein (6.3 - 8.2 g/dL) 7.6 Albumin (3.5 - 5.0 g/dL) 4.6 Globulin (1.9 - 4.2 gm/dL) 3.0 Albumin/Globulin Ratio (1.1 - 2.2 %) 1.5 Amylase (30 - 110 U/L) 32 Lipase (23 - 300 U/L) 71 Hematology CBC w Diff NO MAN DIFF REQ WBC (4.8 - 10.8 /CUMM) 4.2 L RBC (4.20 - 5.40 /CUMM) 4.56 Hgb (12.0 - 16.0 G/DL) 12.7 Hct (37 - 47 %) 38.3 MCV (81.0 - 99.0 FL) 84.1 MCH (27.0 - 31.0 PG) 27.8 RDW (11.5 - 14.5 %) 14.5 Plt Count (130 - 400 /CUMM) 233 MPV (7.4 - 10.4 FL) 10.1 Gran % (42.2 - 75.2 %) 69.5 Lymphocytes % (20.5 - 51.1 %) 20.5 Monocytes % (1.7 - 9.3 %) 7.4 Eosinophils % (0 - 5 %) 1.8 Basophils % (0.0 - 2.0 %) 0.8 Absolute Granulocytes (1.4 - 6.5 /CUMM) 2.9 Absolute Lymphocytes (1.2 - 3.4 /CUMM) 0.9 L Absolute Monocytes (0.10 - 0.60 /CUMM) 0.3 Absolute Eosinophils (0.0 - 0.7 /CUMM) 0.1 Absolute Basophils (0.0 - 0.2 /CUMM) 0 PUBS MCHC (33.0 - 37.0 G/DL) 33.0 Urines Urinalysis MOD H Urine Color (YEL,AMB,STR) YEL Urine Clarity (CLEAR) HAZY H Urine pH (5.0 - 8.0) 6.0 Ur Specific [place] (1.001 - 1.035) 1.015 Urine Protein (NEG,<30 MG/DL) NEG Urine Ketones (NEG) 15 H Urine Nitrite (NEG) NEG Urine Bilirubin (NEG) POS@ICTO H Urine Urobilinogen (0.1 - 1.0 EU/dl) 4.0 H Ur Leukocyte Esterase (NEG) TRACE H Ur Microscopic SEDIMENT EXAMINED Urine RBC (0 - 5 /HPF) RARE Urine WBC (0 - 2 /HPF) 1-3 H Ur Epithelial Cells (NONE,FEW) MOD H Urine Bacteria (NEG/NONE) MOD H Urine Mucus (FEW,NONE) FEW Urine Hemoglobin (NEG) TRACE-INTACT Urine Glucose (N MG/DL) NEG Other Results: SERVICE DATE: 04/26/17 EXAM TYPE: US - US-LIMITED ABDOMEN EXAMINATION: ABDOMINAL ULTRASOUND LIMITED CLINICAL INFORMATION: Abdominal pain. COMPARISON: 04/03/2017. TECHNIQUE: Real-time imaging of the right upper quadrant abdominal viscera. FINDINGS: PANCREAS: The visualized pancreatic head and body are normal in appearance. The remainder of the pancreas is obscured from visualization by the overlying bowel gas. LIVER: The liver is of normal size and diffuse increased echogenicity without focal lesions nor intrahepatic biliary ductal dilation. GALLBLADDER: There are several small calculi within the gallbladder lumen without wall thickening or pericholecystic fluid. COMMON BILE DUCT: Normal in caliber measuring 0.5 cm in diameter. RIGHT KIDNEY: There is no hydronephrosis. There is a 6 mm nonobstructive calculus within the upper pole. The kidney measures 10.6 cm in maximum dimension. FREE FLUID: None. IMPRESSION: Liver of diffuse increased echogenicity without focal lesions. The appearance is nonspecific, but consistent with fatty infiltration. Cholelithiasis without sonographic manifestations of cholecystitis. Nonobstructive right renal calculus. Assessment/Plan Assessment/Plan This is a 46 year-old female with a history of endometriosis, fibroids and iron deficiency anemia who presents with biliary colic, cholelithiasis, hyperbilirubinemia and transaminitis concerning for choledocolithiasis. Keep NPO on IVF Pending negative MRCP, patient will proceed to OR for lap alisha today with Dr. Samuels and recieve Ancef preop If MRCP is postive, patient will require ERCP with GI and surgery to follow 1-2 days later Keep comfortable with IV anlagesics, antiemetics Hold anticoagulation for possible surgical intervention Case discussed with Dr. Samuels who is in agreement Consult Acknowledgment - Thank you for your consult request.
--- NOTE | 2017-04-27 13:49 | PN- Housestaff ---
Elvira CLAY,Cassie 04/27/17 1349: Subjective Follow-up For: cholelithiasis Subjective: patient seen and examined. woken from sleep. states that she only has mild pain on palpation. otherwise is feeling fine. no nausea or vomiting now. Review of Systems Constitutional: Reports: no symptoms. Cardiovascular: Reports: no symptoms. Respiratory: Reports: no symptoms. Gastrointestinal: Reports: abdominal pain. Denies: nausea, vomiting. Genitourinary: Reports: no symptoms. Objective Last 24 Hrs of Vital Signs/I&O Vital Signs Date Time Temp Pulse Resp B/P B/P Pulse O2 O2 Flow FiO2 Mean Ox Delivery Rate 04/27 2030 100 Nasal 2.0L Cannula 04/27 1535 99.1 75 18 127/67 98 Room Air Room Air 04/27 0608 97.0 52 20 121/66 98 Room Air 04/26 2153 98.9 63 20 151/77 100 Room Air Intake & Output 04/27 1600 04/27 0800 04/27 0000 Intake Total 600 Output Total 350 Balance 250 Intake, IV 600 Intake, Oral 0 Output, Urine 350 Patient 169 lb Weight Weight Reported by Patient Measurement Method Physical Exam General Appearance: Alert, Oriented X3, Cooperative, No Acute Distress Skin: No Rashes, No Breakdown HEENT: Atraumatic, PERRLA, EOMI, Mucous Membr. moist/pink Cardiovascular: Regular Rate, Normal S1, Normal S2, No Murmurs Lungs: Clear to Auscultation, Normal Air Movement Abdomen: Normal Bowel Sounds, Soft, No Hepatospenomegaly, No Masses, ruq tenderness to palpation Extremities: No Edema, Normal Pulses, No Tenderness/Swelling Current Medications: Current Medications Sig/Jc Start time Last Medication Dose Route Stop Time Status Admin Acetaminophen 650 MG Q4P PRN 04/27 1800 AC PO Dextrose 25 GM ONCE ONE 04/27 1600 DC 04/27 IV 04/27 1601 1545 Dextrose/Sodium 1,000 ML Q20H 04/27 1700 AC Chloride IV Enoxaparin Sodium 40 MG DAILY 04/27 1000 DC 04/27 SC 1033 Hydromorphone HCl 0.2 MG Q3P PRN 04/27 1800 AC IV Ketorolac 0 .STK-MED ONE 04/26 2210 DC Tromethamine .ROUTE Ketorolac 30 MG ONCE ONE 04/26 2200 DC 04/26 Tromethamine IV 04/261 2230 Lorazepam 0 .STK-MED ONE 04/27 1153 DC .ROUTE Lorazepam 1 MG ONCE ONE 04/27 1145 DC 04/27 IV 04/27 1146 1201 Melatonin 3 MG ONE TIME ONE 04/27 0015 DC 04/27 PO 04/27 0016 0115 Morphine Sulfate 2 MG Q6P PRN 04/27 0045 AC IV Omeprazole 0 .STK-MED ONE 04/27 0109 DC PO Omeprazole 20 MG ONE TIME ONE 04/27 0030 DC PO 04/27 0031 Ondansetron HCl 0 .STK-MED ONE 04/27 1152 DC .ROUTE Ondansetron HCl 4 MG ONCE ONE 04/27 1145 DC 04/27 IV 04/27 1146 1201 Ondansetron HCl 4 MG Q6P PRN 04/26 2315 AC IV Ondansetron HCl 0 .STK-MED ONE 04/26 2210 DC .ROUTE Ondansetron HCl 4 MG ONCE ONE 04/26 2200 DC 04/26 IV 04/26 2201 2230 Oxycodone HCl 5 MG Q4-6 PRN PRN 04/27 1800 AC PO Oxycodone HCl 10 MG Q4-6 PRN PRN 04/27 1800 AC PO Sodium Chloride 1,000 ML Q13H 04/26 2315 DC 04/27 IV 04/28 0114 1201 Sodium Chloride 1,000 ML BOLUS ONE 04/26 2145 DC 04/26 IV 04/26 2344 2152 Last 24 Hrs of Lab/Marck Results Last 24 Hrs of Labs/Mics: Laboratory Tests 04/27/17 0600: Sodium Cancelled, Potassium Cancelled, Chloride Cancelled, Carbon Dioxide Cancelled, Anion Gap Cancelled, BUN Cancelled, Creatinine Cancelled, BUN/ Creatinine Ratio Cancelled 04/27/17 0549: Anion Gap 13, Estimated GFR > 60, BUN/Creatinine Ratio 10.0, Total Bilirubin 2.2 H, Direct Bilirubin 0.7 H, AST 539 H, ALT 728 H, Alkaline Phosphatase 170 H , Total Protein 6.2 L, Albumin 3.6, Total Beta HCG NEGATIVE, CBC w Diff NO MAN DIFF REQ, RBC 4.12 L, MCV 83.0, MCH 28.0, RDW 14.5, MPV 9.0, Gran % 56.0, Lymphocytes % 31.3, Monocytes % 8.3, Eosinophils % 3.8, Basophils % 0.6, Absolute Granulocytes 2.2, Absolute Lymphocytes 1.2, Absolute Monocytes 0.3, Absolute Eosinophils 0.2, Absolute Basophils 0, PUBS MCHC 33.8 04/26/17 2150: Urinalysis MOD H, Urine Color YEL, Urine Clarity HAZY H, Urine pH 6.0, Ur Specific [place] 1.015, Urine Protein NEG, Urine Ketones 15 H, Urine Nitrite NEG, Urine Bilirubin POS@ICTO H, Urine Urobilinogen 4.0 H, Ur Leukocyte Esterase TRACE H, Ur Microscopic SEDIMENT EXAMINED, Urine RBC RARE, Urine WBC 1 -3 H, Ur Epithelial Cells MOD H, Urine Bacteria MOD H, Urine Mucus FEW, Urine Hemoglobin TRACE-INTACT, Urine Glucose NEG Assessment/Plan Assessment: The patient is 46-year-old female with past medical history of endometriosis fibroids and ovarian cyst, iron deficiency anemia secondary to menorrhagia. She presented to [facility] ED on 04/26/2017 with complaint of abdominal pain. Patient found to have elevated LFTs. Ultrasound showed evidence of cholelithiasis. Ultrasound does not show evidence of on intrahepatic biliary duct dilation or cholecystitis. UA positive for urobilinogen, urine hemoglobin bilirubin. Plan #Hyperbilirubinemia and transaminitis: patient found to not have cholecystitis on U/S which would be cause for antibiotics. Possibilities are cholelithiasis causing choledocolithiasis and subsequent biliary colic. Question as to where the stone is now as bilirubin this morning has decreased. -Monitor fever and WBC curve - no leukocystosis, if patient spikes fever do blood cullture -Repeat LFTs have decreased -IVF: patient is NPO - start D51/2NS -Pain control with morphine and Dilaudid avoid hepatotoxins like tylenol -GI consult w Dr. Cage - suggests MRCP. Done today and showed no evidence of acute cholecystitis, choledocholithiasis or biliary tract obstruction. Surgery suggests lap alisha today. -Zofran 4mg for nausea prn #Full code/nothing by mouth/DVT prophylaxis Lovenox Problem List: 1. Gallstones 2. Hyperbilirubinemia 3. Transaminitis Pain Ratin Pain Location: ruq Pain Goal: Pain 4 or less Pain Plan: oxycodone Tomorrow's Labs & Rationales: cbc bep Vinay Vallejo 04/27/17 1441: Attending MD Review Statement Attending Statement Attending MD Statement: examined this patient, discuss w/resident/PA/SURVEY MANAGER, agreed w/resident/PA/SURVEY MANAGER, discussed with family, reviewed EMR data (avail), discussed with nursing, discussed with case mgmt, reviewed images, amended to note Attending Assessment/Plan: 46 o/f with pmh of cholelithiasis comes with abdominal pain, nasuea for past 2 days with minimal PO intake. Patient admtted for intractable abdominal pain with moderate to severe transaminitis and accompanied nausea and minimal PO intake. Patient underwent MRCP which revealed cholelithiasis but no choledocholithiasis. General surgery and GI consulted. Keep Her NPO, advance diet as per surgery and GI if ok. Provide pain control, nausea control. IVF. Follow LFts. Her hyperbilirubinemia is improved as compared to yesterday. gi/dvt prophyalxis full code.
--- NOTE | 2017-04-27 14:14 | Cons- Gastroenterology ---
General Information and HPI Consulting Request Date of Consult: 04/27/17 Requested By: Mariya Mosqueda MD Reason for Consult: Abdominal pain, increased LFTs. Source of Information: patient Exam Limitations: no limitations History of Present Illness: Ms. Torres is a 46 year old female with a PMH significant for iron deficiency anemia secondary to menorhagia and uterine fibroids who presented to yesterday with complaints severe RUQ abdominal pain. She has been having mid- epigastric to RUQ abdominal pain intermittently since and she came to the ER about that time at which point she had a ct scan that showed gallstones without cholecystistis and she was sent home on zofran and ketorlac. Since that time she has been having intermittent RUQ abd pain radiating to her umbilicus which became severe yesterday and caused her to represent to the ER. She has had some nausea, but no vomiting and she has not had any high temperature spikes. She denies any alfredo colored stool, but she notes her urine is dark. She denies any noticable jaundice. She tried advil for the pain at home without much benefit. In the ER she was hemodynamically stable and afebrile. She was noted to have a bilirubin of 4.8 which was normal when she was here last. She had an US that showed gallstones, but no biliary dilatation or evidence of cholecystitis. Since presentation her pain has improved dramatically and she has remained afebrile and hemodynamically stable. Allergies/Medications Allergies: Coded Allergies: morphine (NAUSEA / VOMITING 08/04/16) Current Medications: Current Medications Sig/Jc Start time Last Medication Dose Route Stop Time Status Admin Enoxaparin Sodium 40 MG DAILY 04/27 1000 AC 04/27 SC 1033 Ketorolac 0 .STK-MED ONE 04/26 2210 DC Tromethamine .ROUTE Ketorolac 30 MG ONCE ONE 04/26 2200 DC 04/26 Tromethamine IV 04/26 2201 2230 Lorazepam 0 .STK-MED ONE 04/27 1153 DC .ROUTE Lorazepam 1 MG ONCE ONE 04/27 1145 DC 04/27 IV 04/27 1146 1201 Melatonin 3 MG ONE TIME ONE 04/27 0015 DC 04/27 PO 04/27 0016 0115 Morphine Sulfate 2 MG Q6P PRN 04/27 0045 AC IV Omeprazole 0 .STK-MED ONE 04/27 0109 DC PO Omeprazole 20 MG ONE TIME ONE 04/27 0030 DC PO 04/27 0031 Ondansetron HCl 0 .STK-MED ONE 04/27 1152 DC .ROUTE Ondansetron HCl 4 MG ONCE ONE 04/27 1145 DC 04/27 IV 04/27 1146 1201 Ondansetron HCl 4 MG Q6P PRN 04/26 2315 AC IV Ondansetron HCl 0 .STK-MED ONE 04/26 2210 DC .ROUTE Ondansetron HCl 4 MG ONCE ONE 04/26 2200 DC 04/26 IV 04/26 2201 2230 Sodium Chloride 1,000 ML Q13H 04/26 2315 AC 04/27 IV 04/28 0114 1201 Sodium Chloride 1,000 ML BOLUS ONE 04/26 2145 DC 04/26 IV 04/26 2344 2152 Past History Travel History Traveled to [place] past 21 day No Medical History Neurological: NONE EENT: NONE Cardiovascular: NONE Respiratory: NONE Gastrointestinal: NONE Hepatic: NONE Renal: NONE Musculoskeletal: NONE Psychiatric: NONE Endocrine: NONE Blood Disorders: NONE Cancer(s): NONE GROOVER AND TURNER/Reproductive: endometriosis, OVARIAN CYSTS FIBROIDS Surgical History Surgical History: D&C twice, most recent in July 2016 Family History Relations & Conditions If Any: FATHER (HTN,CAD, prostate CA). MOTHER (HTN, HLD). BROTHER (Cholecystitis). Psychosocial History Where Do You Live? Home Who Do You Live With? spouse Services at Home: None Primary Language: Yakut Smoking Status: Never Smoked ETOH Use: denies use Illicit Drug Use: denies illicit drug use Functional Ability ADLs Independent: dressing, eating, toileting, bathing. Ambulation: independent IADLs Independent: shopping, housework, finances, food prep, telephone, transportation , medication admin. Review of Systems Review of Systems Constitutional: Reports: malaise, weakness. Denies: diaphoresis, fever. EENTM: Denies: no symptoms. Cardiovascular: Denies: no symptoms. Respiratory: Denies: no symptoms. GI: Reports: see HPI. Genitourinary: Denies: no symptoms. Musculoskeletal: Denies: no symptoms. Skin: Denies: no symptoms. Neurological/Psychological: Denies: no symptoms. Hematologic/Endocrine: Denies: no symptoms. Immunologic/Allergic: Denies: no symptoms. All Other Systems: Reviewed and Negative Exam & Diagnostic Data Vital Signs and I&O Vital Signs Date Time Temp Pulse Resp B/P B/P Pulse O2 O2 Flow FiO2 Mean Ox Delivery Rate 04/27 0608 97.0 52 20 121/66 98 Room Air 04/26 2153 98.9 63 20 151/77 100 Room Air 04/26 1711 98.6 74 18 167/85 98 Room Air Intake & Output 04/27 1600 04/27 0400 04/26 0400 04/25 0400 Intake Total 600 Output Total 350 Balance 250 Intake, IV 600 Intake, Oral 0 Output, Urine 350 Patient 169 lb Weight Weight Reported by Patient Measurement Method Physical Exam General Appearance: well developed/nourished, no apparent distress, alert, awake , comfortable Head: atraumatic, normal appearance Eyes: Bilateral: normal appearance. Ears, Nose, Throat: normal pharynx, normal ENT inspection, hearing grossly normal Neck: normal inspection, supple, full range of motion Respiratory: normal breath sounds, chest non-tender, no respiratory distress Cardiovascular: regular rate/rhythm Gastrointestinal: normal bowel sounds, soft, no organomegaly, tenderness Back: normal inspection, normal range of motion Extremities: normal inspection, normal capillary refill, normal range of motion Neurologic/Psych: no motor/sensory deficits, awake, alert, oriented x 3 Skin: intact, normal color, warm/dry Results Pertinent Lab Results: Laboratory Tests 04/27 04/27 0600 0549 Chemistry Sodium (137 - 145 mmol/L) Cancelled 143 Potassium (3.5 - 5.1 mmol/L) Cancelled 3.6 Chloride (98 - 107 mmol/L) Cancelled 107 Carbon Dioxide (22 - 30 mmol/L) Cancelled 22 Anion Gap (5 - 16) Cancelled 13 BUN (7 - 17 mg/dL) Cancelled 7 Creatinine (0.5 - 1.0 mg/dL) Cancelled 0.7 Estimated GFR (>60 ml/min) > 60 BUN/Creatinine Ratio (7 - 25 %) Cancelled 10.0 Total Bilirubin (0.2 - 1.3 mg/dL) 2.2 H Direct Bilirubin (< 0.4 mg/dL) 0.7 H AST (14 - 36 U/L) 539 H ALT (9 - 52 U/L) 728 H Alkaline Phosphatase (<127 U/L) 170 H Total Protein (6.3 - 8.2 g/dL) 6.2 L Albumin (3.5 - 5.0 g/dL) 3.6 Hematology CBC w Diff NO MAN DIFF REQ WBC (4.8 - 10.8 /CUMM) 3.9 L RBC (4.20 - 5.40 /CUMM) 4.12 L Hgb (12.0 - 16.0 G/DL) 11.6 L Hct (37 - 47 %) 34.2 L MCV (81.0 - 99.0 FL) 83.0 MCH (27.0 - 31.0 PG) 28.0 RDW (11.5 - 14.5 %) 14.5 Plt Count (130 - 400 /CUMM) 204 MPV (7.4 - 10.4 FL) 9.0 Gran % (42.2 - 75.2 %) 56.0 Lymphocytes % (20.5 - 51.1 %) 31.3 Monocytes % (1.7 - 9.3 %) 8.3 Eosinophils % (0 - 5 %) 3.8 Basophils % (0.0 - 2.0 %) 0.6 Absolute Granulocytes (1.4 - 6.5 /CUMM) 2.2 Absolute Lymphocytes (1.2 - 3.4 /CUMM) 1.2 Absolute Monocytes (0.10 - 0.60 /CUMM) 0.3 Absolute Eosinophils (0.0 - 0.7 /CUMM) 0.2 Absolute Basophils (0.0 - 0.2 /CUMM) 0 PUBS MCHC (33.0 - 37.0 G/DL) 33.8 04/26 04/26 2150 1715 Chemistry Sodium (137 - 145 mmol/L) 142 Potassium (3.5 - 5.1 mmol/L) 3.9 Chloride (98 - 107 mmol/L) 102 Carbon Dioxide (22 - 30 mmol/L) 27 Anion Gap (5 - 16) 13 BUN (7 - 17 mg/dL) 10 Creatinine (0.5 - 1.0 mg/dL) 0.8 Estimated GFR (>60 ml/min) > 60 BUN/Creatinine Ratio (7 - 25 %) 12.5 Glucose (65 - 99 mg/dL) 104 H Calcium (8.4 - 10.2 mg/dL) 9.7 Total Bilirubin (0.2 - 1.3 mg/dL) 4.8 H Direct Bilirubin (< 0.4 mg/dL) 2.7 H AST (14 - 36 U/L) 861 H ALT (9 - 52 U/L) 972 H Alkaline Phosphatase (<127 U/L) 200 H Troponin I (< 0.11 ng/ml) 0.02 Total Protein (6.3 - 8.2 g/dL) 7.6 Albumin (3.5 - 5.0 g/dL) 4.6 Globulin (1.9 - 4.2 gm/dL) 3.0 Albumin/Globulin Ratio (1.1 - 2.2 %) 1.5 Amylase (30 - 110 U/L) 32 Lipase (23 - 300 U/L) 71 Hematology CBC w Diff NO MAN DIFF REQ WBC (4.8 - 10.8 /CUMM) 4.2 L RBC (4.20 - 5.40 /CUMM) 4.56 Hgb (12.0 - 16.0 G/DL) 12.7 Hct (37 - 47 %) 38.3 MCV (81.0 - 99.0 FL) 84.1 MCH (27.0 - 31.0 PG) 27.8 RDW (11.5 - 14.5 %) 14.5 Plt Count (130 - 400 /CUMM) 233 MPV (7.4 - 10.4 FL) 10.1 Gran % (42.2 - 75.2 %) 69.5 Lymphocytes % (20.5 - 51.1 %) 20.5 Monocytes % (1.7 - 9.3 %) 7.4 Eosinophils % (0 - 5 %) 1.8 Basophils % (0.0 - 2.0 %) 0.8 Absolute Granulocytes (1.4 - 6.5 /CUMM) 2.9 Absolute Lymphocytes (1.2 - 3.4 /CUMM) 0.9 L Absolute Monocytes (0.10 - 0.60 /CUMM) 0.3 Absolute Eosinophils (0.0 - 0.7 /CUMM) 0.1 Absolute Basophils (0.0 - 0.2 /CUMM) 0 PUBS MCHC (33.0 - 37.0 G/DL) 33.0 Urines Urinalysis MOD H Urine Color (YEL,AMB,STR) YEL Urine Clarity (CLEAR) HAZY H Urine pH (5.0 - 8.0) 6.0 Ur Specific [place] (1.001 - 1.035) 1.015 Urine Protein (NEG,<30 MG/DL) NEG Urine Ketones (NEG) 15 H Urine Nitrite (NEG) NEG Urine Bilirubin (NEG) POS@ICTO H Urine Urobilinogen (0.1 - 1.0 EU/dl) 4.0 H Ur Leukocyte Esterase (NEG) TRACE H Ur Microscopic SEDIMENT EXAMINED Urine RBC (0 - 5 /HPF) RARE Urine WBC (0 - 2 /HPF) 1-3 H Ur Epithelial Cells (NONE,FEW) MOD H Urine Bacteria (NEG/NONE) MOD H Urine Mucus (FEW,NONE) FEW Urine Hemoglobin (NEG) TRACE-INTACT Urine Glucose (N MG/DL) NEG Imaging/Other Studies: SERVICE DATE: 04/26/17 EXAM TYPE: US - US-LIMITED ABDOMEN EXAMINATION: ABDOMINAL ULTRASOUND LIMITED CLINICAL INFORMATION: Abdominal pain. COMPARISON: 04/03/2017. TECHNIQUE: Real-time imaging of the right upper quadrant abdominal viscera. FINDINGS: PANCREAS: The visualized pancreatic head and body are normal in appearance. The remainder of the pancreas is obscured from visualization by the overlying bowel gas. LIVER: The liver is of normal size and diffuse increased echogenicity without focal lesions nor intrahepatic biliary ductal dilation. GALLBLADDER: There are several small calculi within the gallbladder lumen without wall thickening or pericholecystic fluid. COMMON BILE DUCT: Normal in caliber measuring 0.5 cm in diameter. RIGHT KIDNEY: There is no hydronephrosis. There is a 6 mm nonobstructive calculus within the upper pole. The kidney measures 10.6 cm in maximum dimension. FREE FLUID: None. IMPRESSION: Liver of diffuse increased echogenicity without focal lesions. The appearance is nonspecific, but consistent with fatty infiltration. Cholelithiasis without sonographic manifestations of cholecystitis. Nonobstructive right renal calculus. Assessment/Plan Assessment/Recommendations: Assessment: Ms. Trevizo is a 46 year old female with symptoms of biliary colic over the past month who preseted yesterday with a marked increase in her pain which was most likely secondary to a passed gallstone considering the increased bilirubin on presentation which is now improving. As her bilirubin has gone from 4.8 to 2.2 today and her pain is improved I suspect she passed a gallstone and I am therefore hopeful that an ERCP won't be necessary. That being said, it is still possible she could have a retained gallstone so I would recommend checking an MRCP to evaluate for this, but if that is negative would then recommend a cholecystectomy to help prevent future attacks. She is currently without cholangitis or cholecystistis so I feel she can likely safely be monitored off of antibiotics for now. She is also without evidence of pancreatitis so if no surgical intervention is planned for today her diet can likely be advanced as tolerated. Recommendations: 1. Check an MRCP to evaluate for choledocolithiasis 2. Call a surgical consult to evaluate for a CCY 3. Notify GI for signs of cholangitis, but would monitor off of abx for now 4. If MRCP is positive for choledocolithiasis will then arrange for a therapeutic ERCP and if it is negative would then recommend a CCY with a intra- operative cholangiogram 5. Anaglesia and anti-emetics as needed 6. Follow daily LFTs and would consider further work up if they remain elevated as an outpatient. I will continue to follow this patient and make further recommendations based on her clinical course and results of repeat blood work and imaging. Problem List: 1. Transaminitis 2. Hyperbilirubinemia 3. Gallstones 4. Biliary colic Copies To: Mando CLAY,Cruzito Rico. Consult Acknowledgment - Thank you for your consult request.
--- NOTE | 2017-04-27 14:23 | MRI REPORT ---
EXAMINATION: MR ABDOMEN WITHOUT CONTRAST CLINICAL INFORMATION: Nausea, abdominal pain and abnormal liver function tests. COMPARISON: Abdomen ultrasound from 04/26/2017. Abdomen CT from 04/03/2017. TECHNIQUE: Noncontrast imaging of the abdomen was performed on a high-field 1.5 Desiree magnet using standard cholangiopancreatography protocol. FINDINGS: Lung bases are unremarkable. Diffuse hepatic steatosis is evident on the opposed phase gradient echo images. Gallbladder exhibits diffuse T1 signal and T2 signal shortening from sludge, and the small calculi observed on 04/03/2017 and 04/26/2017 are suboptimally visualized given the presence of sludge. No gallbladder wall edema or pericholecystic fluid. Common bile duct is normal and measures 0.4 cm diameter. No intrahepatic or extrahepatic bile duct dilatation. No evidence of choledocholithiasis. Pancreas is normal. No pancreatic divisum or peripancreatic edema. Spleen is normal; it measures up to 11.5 cm maximum dimension. No focal splenic lesion. Adrenal glands are normal. Kidneys are normal in size. No hydronephrosis. There are 0.9 cm and 1 cm cysts of the lower pole of the left kidney. Abdominal aorta is normal in size. No periportal, mesenteric or retroperitoneal lymphadenopathy. Stomach is normal. The visualized bowel loops are normal in caliber. No ascites. Abdominal wall is unremarkable. There is a small hemangioma of the L4 vertebral body. No suspicious osseous lesions. IMPRESSION: 1. Diffuse hepatic steatosis. 2. Gallbladder contains sludge and calculi. No MR imaging evidence of acute cholecystitis, choledocholithiasis or biliary tract obstruction.
--- NOTE | 2017-04-27 18:02 | Operative Report ---
Operative/Inv Procedure Report Surgery Date: 04/27/17 Name of Procedure: Laparoscopic Cholecystectomy Pre-Operative Diagnosis: Cholelithiasis/Choledocholithiasis Post-Operative Diagnosis: Same Estimated Blood Loss: less than 50ml Surgeon/[employer] Operator: Ovi Beltran APRN Anesthesia: general endotracheal tube IV Fluids: 700 cc Drains: None Specimens: Gallbladder Complications: None Condition: Stable Operative Indication: This is a 46-year-old female who presented to the emergency room with abdominal pain. Patient was found to have cholelithiasis and elevated LFTs. Patient underwent an MRCP which was negative for choledocholithiasis. A laparoscopic possible open cholecystectomy was discussed. All risks including but not limited to bleeding, infection, bile leak, and injury to surrounding duct/bowel were discussed in detail. The patient understood everything and decided to proceed. Operative/Procedure Note Note: The patient was brought to the operating room and placed on the operating room table in supine position. Venodyne stockings were placed and adequate general endotracheal anesthesia was obtained. The patient was prepped and draped in standard surgical fashion. We began the procedure by making a 2 cm transverse incision in the infraumbilical crease. The incision was carried down to the fascia, once the fascia was clearly visualized it was picked up between 2 indira clamps. The fascia was divided in the midline and once we entered the peritoneum 2 stay 0 Vicryl sutures were placed on each side. A 12 mm blunt port was inserted and the abdominal cavity was insufflated to 15 mmHg. A 10 mm 30 laparoscope was introduced and upon initial examination no obvious gross pathology was seen. We did note a mildly distended gallbladder in the right upper quadrant. Accessory trocars were placed, all 5 mm, one in the epigastrium and 2 in the right upper quadrant (one in the midclavicular line and one in the anterior axillary line, both 2 fingerbreadths below the costal margin). The gallbladder was grasped with the lateralmost trocar and retracted up over the liver. Using the other 2 accessory trochars the infundibulum was grasped and the peritoneum was lysed using blunt dissection and using hook electrocautery. The cystic duct and cystic artery were visualized. The common bile duct was visualized and it was away from our area of dissection. The cystic duct and artery were skeletonized and divided between clips, 3 clips to stay and one clip on the gallbladder side for the duct and 2 clips to stay and one clip on the gallbladder side for the artery. The gallbladder was dissected off the liver bed using hook electrocautery maintaining hemostasis. Prior to completely removing the gallbladder off the liver bed we examined the area of dissection no obvious bile leak or bleeding was noted, the clips appeared to be in good position. The gallbladder was completely detached from the liver bed. We switched to a 5 mm laparoscope and a 10 mm Endobag was introduced through the umbilical trocar site. The gallbladder was placed in the bag and removed through the umbilicus. The abdomen was reinsufflated. We switched back to a 10 mm laparoscope and examined our area of dissection. No obvious bile leak or bleeding was noted. The right upper quadrant was irrigated until clear. All ports were removed under direct visualization, no obvious bleeding was noted. The umbilical trocar site was closed using 0 Vicryl suture. The skin was closed using 4-0 Monocryl. Steri-Strips and dressings were placed. The patient was successfully extubated and transferred to the recovery room in stable condition. The patient tolerated the procedure well with no complications. Findings: Multiple small stones/sludge, thick gallbladder wall CC: Mando CLAY,Cruzito Piper
--- NOTE | 2017-04-27 20:50 | PN- General Surgery ---
Subjective Subjective: POST OP CHECK Patient reports postoperative pain and states her postop nausea/vomiting is well controlled. She offers no other complaints.Per nursing she voided 500 cc. Objective Vital Signs and I&Os Vital Signs Date Time Temp Pulse Resp B/P B/P Pulse O2 O2 Flow FiO2 Mean Ox Delivery Rate 04/27 2121 97.8 86 18 149/93 100 Nasal 2.0L Cannula 04/27 2029 100 Nasal 2.0L Cannula 04/27 1535 99.1 75 18 127/67 98 Room Air Room Air 04/27 0608 97.0 52 20 121/66 98 Room Air 04/26 2153 98.9 63 20 151/77 100 Room Air Intake & Output 04/27 1600 04/27 0800 04/27 0000 04/26 1600 04/26 0800 04/26 0000 Intake Total 600 Output Total 350 Balance 250 Intake, IV 600 Intake, Oral 0 Output, Urine 350 Patient 169 lb Weight Weight Reported by Patient Measurement Method Physical Exam: Gen - resting comfortably with eyes closed in NAD Cardiac - s1s2 noted, rrr Lungs - CTAB Abd - soft with 3 right-sided lap dressing c/d/i incisions, umbilicus dressing moderately saturated with serosanguineous drainage, appropriately tender to palpation, no rebound or guarding noted Ext - no edema or calf tenderness B/L Assessment/Plan Assessment/Plan 46 y/o F POD 0 s/p lap alisha secondary to choledocolithiasis/cholelithiasis Advance to clears tonight Cont gentle hydration Cont pain regimen Cont antiemetics prn May resume dvt ppx Encourage ambulation Encourage IS
[2017-04-27 21:22] VITALS: BP 149/93
[2017-04-27 22:00] VITALS: BP 133/87
[2017-04-28 07:11] VITALS: BP 126/81
--- NOTE | 2017-04-28 07:16 | PN- General Surgery ---
See Addendum Subjective Subjective: POD #1 s/p lap alisha. Resting comfortably in bed. Labs being drawn upon interview. Tolerating clears without N/V. Denies F/C, CP/SOB. Ambulating well. Voiding spontaneously. Objective Vital Signs and I&Os Vital Signs Date Time Temp Pulse Resp B/P B/P Pulse O2 O2 Flow FiO2 Mean Ox Delivery Rate 04/28 0711 97.7 69 18 126/81 98 Room Air 04/28 0000 Nasal 2.0L Cannula 04/27 2200 97.8 73 18 133/87 98 Nasal 2.0L Cannula 04/27 2122 97.8 86 18 149/93 100 Nasal 2.0L Cannula 04/27 2030 100 Nasal 2.0L Cannula 04/27 1535 99.1 75 18 127/67 98 Room Air Room Air Intake & Output 04/28 0800 04/28 0000 04/27 1600 04/27 0800 04/27 0000 04/26 1600 Intake Total 520 220 600 Output Total 1000 800 350 Balance -480 -580 250 Intake, IV 400 100 600 Intake, Oral 120 120 0 Output, Urine 1000 800 350 Patient 170 lb 169 lb Weight Weight Bed scale Reported by Patient Measurement Method Physical Exam: Gen: AAox3 in NAD Cor: S1+S2+ Lungs: CTA mynor Abd: soft, NT, ND, +BS x4. Umbilical dressing with serosanguinous drainage. Ext: no edema or calf tenderness to mynor lower extremities. Current Medications: Current Medications Sig/Jc Start time Last Medication Dose Route Stop Time Status Admin Acetaminophen 650 MG Q4P PRN 04/27 1800 AC PO Acetaminophen 1,000 MG .STK-MED ONE 04/27 1628 DC IV 04/27 1629 Dextrose 25 GM ONCE ONE 04/27 1600 DC 04/27 IV 04/27 1601 1545 Dextrose/Sodium 1,000 ML Q20H 04/27 1700 AC Chloride IV Enoxaparin Sodium 40 MG DAILY 04/28 1000 AC SC Enoxaparin Sodium 40 MG DAILY 04/27 1000 DC 04/27 SC 1033 Fentanyl Citrate 250 MCG .STK-MED ONE 04/27 1628 DC IM 04/27 1629 Hydromorphone HCl 0.2 MG Q3P PRN 04/27 1800 AC IV Ketorolac 30 MG Q6 04/27 2359 AC 04/28 Tromethamine IV 04/29 0601 0623 Lorazepam 0 .STK-MED ONE 04/27 1153 DC .ROUTE Lorazepam 1 MG ONCE ONE 04/27 1145 DC 04/27 IV 04/27 1146 1201 Meperidine HCl 50 MG .STK-MED ONE 04/27 1841 DC IM 04/27 1842 Midazolam HCl 2 MG .STK-MED ONE 04/27 1628 DC IM 04/27 1629 Morphine Sulfate 2 MG Q6P PRN 04/27 0045 AC IV Ondansetron HCl 0 .STK-MED ONE 04/27 1152 DC .ROUTE Ondansetron HCl 4 MG ONCE ONE 04/27 1145 DC 04/27 IV 04/27 1146 1201 Ondansetron HCl 4 MG Q6P PRN 04/26 2315 AC 04/28 IV 0622 Oxycodone HCl 5 MG Q4-6 PRN PRN 04/27 1800 AC PO Oxycodone HCl 10 MG Q4-6 PRN PRN 04/27 1800 AC PO Scopolamine HBr 1 PAT .STK-MED ONE 04/27 1628 DC TOP 04/27 1629 Sodium Chloride 1,000 ML Q13H 04/26 2315 DC 04/27 IV 04/28 0114 1201 Results Last 48 Hours of Labs: Laboratory Tests 04/28 04/27 04/27 0724 0600 0549 Chemistry Sodium (137 - 145 mmol/L) Pending Cancelled 143 Potassium (3.5 - 5.1 mmol/L) Pending Cancelled 3.6 Chloride (98 - 107 mmol/L) Pending Cancelled 107 Carbon Dioxide (22 - 30 mmol/L) Pending Cancelled 22 Anion Gap (5 - 16) Pending Cancelled 13 BUN (7 - 17 mg/dL) Pending Cancelled 7 Creatinine (0.5 - 1.0 mg/dL) Pending Cancelled 0.7 Estimated GFR (>60 ml/min) > 60 BUN/Creatinine Ratio (7 - 25 %) Pending Cancelled 10.0 Total Bilirubin (0.2 - 1.3 mg/dL) Pending 2.2 H Direct Bilirubin (< 0.4 mg/dL) Pending 0.7 H AST (14 - 36 U/L) Pending 539 H ALT (9 - 52 U/L) Pending 728 H Alkaline Phosphatase (<127 U/L) Pending 170 H Total Protein (6.3 - 8.2 g/dL) Pending 6.2 L Albumin (3.5 - 5.0 g/dL) Pending 3.6 Total Beta HCG (NEGATIVE) NEGATIVE Hematology CBC w Diff Pending NO MAN DIFF REQ WBC (4.8 - 10.8 /CUMM) Pending 3.9 L RBC (4.20 - 5.40 /CUMM) Pending 4.12 L Hgb (12.0 - 16.0 G/DL) Pending 11.6 L Hct (37 - 47 %) Pending 34.2 L MCV (81.0 - 99.0 FL) Pending 83.0 MCH (27.0 - 31.0 PG) Pending 28.0 RDW (11.5 - 14.5 %) Pending 14.5 Plt Count (130 - 400 /CUMM) Pending 204 MPV (7.4 - 10.4 FL) Pending 9.0 Gran % (42.2 - 75.2 %) 56.0 Lymphocytes % (20.5 - 51.1 %) 31.3 Monocytes % (1.7 - 9.3 %) 8.3 Eosinophils % (0 - 5 %) 3.8 Basophils % (0.0 - 2.0 %) 0.6 Absolute Granulocytes (1.4 - 6.5 /CUMM) 2.2 Absolute Lymphocytes (1.2 - 3.4 /CUMM) 1.2 Absolute Monocytes (0.10 - 0.60 /CUMM) 0.3 Absolute Eosinophils (0.0 - 0.7 /CUMM) 0.2 Absolute Basophils (0.0 - 0.2 /CUMM) 0 PUBS MCHC (33.0 - 37.0 G/DL) Pending 33.8 04/26 04/26 2150 1715 Chemistry Sodium (137 - 145 mmol/L) 142 Potassium (3.5 - 5.1 mmol/L) 3.9 Chloride (98 - 107 mmol/L) 102 Carbon Dioxide (22 - 30 mmol/L) 27 Anion Gap (5 - 16) 13 BUN (7 - 17 mg/dL) 10 Creatinine (0.5 - 1.0 mg/dL) 0.8 Estimated GFR (>60 ml/min) > 60 BUN/Creatinine Ratio (7 - 25 %) 12.5 Glucose (65 - 99 mg/dL) 104 H Calcium (8.4 - 10.2 mg/dL) 9.7 Total Bilirubin (0.2 - 1.3 mg/dL) 4.8 H Direct Bilirubin (< 0.4 mg/dL) 2.7 H AST (14 - 36 U/L) 861 H ALT (9 - 52 U/L) 972 H Alkaline Phosphatase (<127 U/L) 200 H Troponin I (< 0.11 ng/ml) 0.02 Total Protein (6.3 - 8.2 g/dL) 7.6 Albumin (3.5 - 5.0 g/dL) 4.6 Globulin (1.9 - 4.2 gm/dL) 3.0 Albumin/Globulin Ratio (1.1 - 2.2 %) 1.5 Amylase (30 - 110 U/L) 32 Lipase (23 - 300 U/L) 71 Hematology CBC w Diff NO MAN DIFF REQ WBC (4.8 - 10.8 /CUMM) 4.2 L RBC (4.20 - 5.40 /CUMM) 4.56 Hgb (12.0 - 16.0 G/DL) 12.7 Hct (37 - 47 %) 38.3 MCV (81.0 - 99.0 FL) 84.1 MCH (27.0 - 31.0 PG) 27.8 RDW (11.5 - 14.5 %) 14.5 Plt Count (130 - 400 /CUMM) 233 MPV (7.4 - 10.4 FL) 10.1 Gran % (42.2 - 75.2 %) 69.5 Lymphocytes % (20.5 - 51.1 %) 20.5 Monocytes % (1.7 - 9.3 %) 7.4 Eosinophils % (0 - 5 %) 1.8 Basophils % (0.0 - 2.0 %) 0.8 Absolute Granulocytes (1.4 - 6.5 /CUMM) 2.9 Absolute Lymphocytes (1.2 - 3.4 /CUMM) 0.9 L Absolute Monocytes (0.10 - 0.60 /CUMM) 0.3 Absolute Eosinophils (0.0 - 0.7 /CUMM) 0.1 Absolute Basophils (0.0 - 0.2 /CUMM) 0 PUBS MCHC (33.0 - 37.0 G/DL) 33.0 Urines Urinalysis MOD H Urine Color (YEL,AMB,STR) YEL Urine Clarity (CLEAR) HAZY H Urine pH (5.0 - 8.0) 6.0 Ur Specific [place] (1.001 - 1.035) 1.015 Urine Protein (NEG,<30 MG/DL) NEG Urine Ketones (NEG) 15 H Urine Nitrite (NEG) NEG Urine Bilirubin (NEG) POS@ICTO H Urine Urobilinogen (0.1 - 1.0 EU/dl) 4.0 H Ur Leukocyte Esterase (NEG) TRACE H Ur Microscopic SEDIMENT EXAMINED Urine RBC (0 - 5 /HPF) RARE Urine WBC (0 - 2 /HPF) 1-3 H Ur Epithelial Cells (NONE,FEW) MOD H Urine Bacteria (NEG/NONE) MOD H Urine Mucus (FEW,NONE) FEW Urine Hemoglobin (NEG) TRACE-INTACT Urine Glucose (N MG/DL) NEG Assessment/Plan Assessment/Plan A: POD #1 s/p lap alisha; AVSS Plan: F/U LFTs. Advance diet as tolerated to low fat. General surgery to sign off. Please call with questions. Core Measures Venous Thromboembolism VTE Risk Factors Age>40 No Mechanical VTE Prophylaxis d/t N/A MechProphylax Ordered No VTE Pharm Prophylaxis d/t NA PharmProphylax ordered
[2017-04-28 08:18] LABS: ABSOLUTE BASOPHIL COUNT 0 /CUMM (0.0-0.2); ABSOLUTE EOSINOPHIL COUNT 0 /CUMM (0.0-0.7); ABSOLUTE GRANULOCYTE CT 8.8 /CUMM (1.4-6.5); ABSOLUTE LYMPH COUNT 0.5 /CUMM (1.2-3.4); ABSOLUTE MONOCYTE COUNT 0.5 /CUMM (0.10-0.60); BASOPHIL % 0.1 % (0.0-2.0); EOSINOPHIL % 0 % (0-5); HEMATOCRIT 35.9 % (37-47); MEAN CORPUSCULAR HGB 27.7 PG (27.0-31.0); MEAN CORPUSCULAR HGB CONC 33.4 G/DL (33.0-37.0); RBC DISTRIBUTION WIDTH 14.5 % (11.5-14.5); RED BLOOD CELL CT 4.32 /CUMM (4.20-5.40)
--- NOTE | 2017-04-28 08:32 | PN- Housestaff ---
Elvira CLAY,Cassie 04/28/17 0831: Subjective Follow-up For: cholelithiasis Subjective: patient states that she feels good day 0 post op. she states that she did have some nausea post surgery and does complain of some right-sided diaphragmatic pain referred to her right shoulder. Other than that she states that she is feeling good. She is using her incentive spirometer and has no complaints of shortness of breath. Denies chest pain and only some mild incisional pain in her abdomen. Review of Systems Constitutional: Reports: no symptoms. Gastrointestinal: Reports: abdominal pain, nausea. Objective Last 24 Hrs of Vital Signs/I&O Vital Signs Date Time Temp Pulse Resp B/P B/P Pulse O2 O2 Flow FiO2 Mean Ox Delivery Rate 04/28 1136 Room Air 04/28 0711 97.7 69 18 126/81 98 Room Air 04/28 0000 Nasal 2.0L Cannula 04/27 2200 97.8 73 18 133/87 98 Nasal 2.0L Cannula 04/27 2122 97.8 86 18 149/93 100 Nasal 2.0L Cannula 04/27 2030 100 Nasal 2.0L Cannula 04/27 1535 99.1 75 18 127/67 98 Room Air Room Air Intake & Output 04/28 1600 04/28 0800 04/28 0000 Intake Total 520 220 Output Total 1000 800 Balance -480 -580 Intake, IV 400 100 Intake, Oral 120 120 Output, Urine 1000 800 Patient 170 lb Weight Weight Bed scale Measurement Method Physical Exam General Appearance: Alert, Oriented X3, Cooperative, No Acute Distress Cardiovascular: Regular Rate, Normal S1, Normal S2, No Murmurs Lungs: Clear to Auscultation, right chest pain on deep inspiration Abdomen: Normal Bowel Sounds, Soft, No Tenderness, No Hepatospenomegaly, No Masses Current Medications: Current Medications Sig/Jc Start time Last Medication Dose Route Stop Time Status Admin Acetaminophen 650 MG Q4P PRN 04/27 1800 AC PO Acetaminophen 1,000 MG .STK-MED ONE 04/27 1628 DC IV 04/27 1629 Dextrose 25 GM ONCE ONE 04/27 1600 DC 04/27 IV 04/27 1601 1545 Dextrose/Sodium 1,000 ML Q20H 04/27 1700 AC Chloride IV Enoxaparin Sodium 40 MG DAILY 04/28 1000 AC SC Enoxaparin Sodium 40 MG DAILY 04/27 1000 DC 04/27 SC 1033 Fentanyl Citrate 250 MCG .STK-MED ONE 04/27 1628 DC IM 04/27 1629 Hydromorphone HCl 0.2 MG Q3P PRN 04/27 1800 AC IV Ketorolac 30 MG Q6 04/27 2359 AC 04/28 Tromethamine IV 04/29 0601 0623 Lorazepam 0 .STK-MED ONE 04/27 1153 DC .ROUTE Lorazepam 1 MG ONCE ONE 04/27 1145 DC 04/27 IV 04/27 1146 1201 Meperidine HCl 50 MG .STK-MED ONE 04/27 1841 DC IM 04/27 1842 Midazolam HCl 2 MG .STK-MED ONE 04/27 1628 DC IM 04/27 1629 Morphine Sulfate 2 MG Q6P PRN 04/27 0045 DC IV Ondansetron HCl 0 .STK-MED ONE 04/27 1152 DC .ROUTE Ondansetron HCl 4 MG ONCE ONE 04/27 1145 DC 04/27 IV 04/27 1146 1201 Ondansetron HCl 4 MG Q6P PRN 04/26 2315 AC 04/28 IV 0622 Oxycodone HCl 5 MG Q4-6 PRN PRN 04/27 1800 AC PO Oxycodone HCl 10 MG Q4-6 PRN PRN 04/27 1800 AC PO Scopolamine HBr 1 PAT .STK-MED ONE 04/27 1628 DC TOP 04/27 1629 Sodium Chloride 1,000 ML Q13H 04/26 2315 DC 04/27 IV 04/28 0114 1201 Last 24 Hrs of Lab/Marck Results Last 24 Hrs of Labs/Mics: Laboratory Tests 04/28/17 0724: Anion Gap 15, Estimated GFR > 60, BUN/Creatinine Ratio 6.0 L, Total Bilirubin 1.1, Direct Bilirubin 0.5 H, AST 173 H, ALT 481 H, Alkaline Phosphatase 165 H, Total Protein 6.2 L, Albumin 3.4 L, CBC w Diff NO MAN DIFF REQ, RBC 4.32, MCV 83.0, MCH 27.7, RDW 14.5, Gran % 90.1 H, Lymphocytes % 5.2 L, Monocytes % 4.6, Eosinophils % 0, Basophils % 0.1, Absolute Granulocytes 8.8 H, Absolute Lymphocytes 0.5 L, Absolute Monocytes 0.5, Absolute Eosinophils 0, Absolute Basophils 0, PUBS MCHC 33.4 Assessment/Plan Assessment: The patient is 46-year-old female with past medical history of endometriosis fibroids and ovarian cyst, iron deficiency anemia secondary to menorrhagia. She presented to [facility] on 04/26/2017 with complaint of abdominal pain. Patient found to have elevated LFTs. Ultrasound showed evidence of cholelithiasis. Ultrasound does not show evidence of on intrahepatic biliary duct dilation or cholecystitis. UA positive for urobilinogen, urine hemoglobin bilirubin. Plan #Hyperbilirubinemia and transaminitis: patient found to not have cholecystitis on U/S which would be cause for antibiotics. MRCP showed no evidence of acute cholecystitis, choledocholithiasis or biliary tract obstruction. Patient's LFTs show ongoing resolution of transaminitis and hyperbilirubinemia. -Monitor fever and WBC curve - no leukocystosis, if patient spikes fever do blood culture -IVF: 50cc/hr D51/2NS -Patient is advanced from clear liquids this morning to full liquids at lunch and will get a regular diet at dinner. Monitor for diet tolerance and can discharge afterwards if patient tolerating. -One day sp lap alisha. Patient on toradol for pain as needed. Will discharge with ibuprofen 800mg tid prn with PPI 40mg daily for gastritis as patient mentioned she takes ibuprofen for her fibroids often. No tylenol as per transaminitis and no morphine as patient is allergic and gets sick to her stomach when she takes it. -Zofran 4mg for nausea prn, will give ODT 4mg on discharge. #Full code/full liquids/DVT prophylaxis Lovenox- denied this am as she is walking Problem List: 1. Cholelithiasis 2. Hyperbilirubinemia 3. Transaminitis Pain Ratin Pain Location: abdomen and right chest up to arm on inspiration Pain Goal: Pain 4 or less Pain Plan: ibuprofen 800 at home, here toradol Tomorrow's Labs & Rationales: cbc atulp Vinay Vallejo 04/28/17 1122: Attending MD Review Statement Attending Statement Attending MD Statement: examined this patient, discuss w/resident/PA/CYBER DEFENSE ANALYST, agreed w/resident/PA/CYBER DEFENSE ANALYST, discussed with family, reviewed EMR data (avail), discussed with nursing, discussed with case mgmt, reviewed images, amended to note Attending Assessment/Plan: 46 o/f with pmh of cholelithiasis comes with abdominal pain, nasuea for past 2 days with minimal PO intake. Patient admtted for intractable abdominal pain with moderate to severe transaminitis and accompanied nausea and minimal PO intake. Patient underwent MRCP which revealed cholelithiasis but no choledocholithiasis. General surgery and GI consulted. Patient underwent lap cholecystectomy 04/27/17, advance diet as per surgery. Provide pain control, Her hyperbilirubinemia/LFTs show significant improvement. Patient is stable for discharge if she is tolerates her diet. FOLLOW UP PCP in 3-5 days of discharge. Surgery in 1 week of discharge.
--- NOTE | 2017-04-28 08:42 | Patient Discharge Instructions ---
Discharge Instructions General Discharge Information You were seen/treated for: symptomatic cholelithiasis Special Instructions: 1. follow up with PCP in one week 2. follow up with surgeon Dr. Samuels in one week 3. follow up with [facility] in one week 4. follow up LFT's in a week 5. take low fat diet and advance as tolerated Diet Continue normal diet: Yes Recommended Diet: Low Fat Activity Full Activity/No Limits: Yes Acute Coronary Syndrome Inclusion Criteria At DC or during hospital stay patient has or had the following: ACS DIAGNOSIS No Discharge Core Measures Meds if any: Prescribed or Continued at Discharge Meds if any: NOT Prescribed or Continued at Discharge Congestive Heart Failure Inclusion Criteria At DC or during hospital stay patient has or had the following: CHF DIAGNOSIS No Discharge Core Measures Meds if any: Prescribed or Continued at Discharge Meds if any: NOT Prescribed or Continued at Discharge Cerebrovascular accident Inclusion Criteria At DC or during hospital stay patient has or had the following: CVA/TIA Diagnosis No Discharge Core Measures Meds if any: Prescribed or Continued at Discharge Meds if any: NOT Prescribed or Continued at Discharge Venous thromboembolism Inclusion Criteria VTE Diagnosis No VTE Type NONE VTE Confirmed by (Test) NONE Discharge Core Measures - Per Current guidelines, there needs to be overlap - treatment for the first 5 days of Warfarin therapy. - If discharged on Warfarin prior to 5 days of - overlap therapy, the patient will need to be - assessed for post discharge needs including - *Post discharge parental anticoagulation - *Warfarin and/or parental anticoagulation education - *Follow up date to check INR post discharge At least 5 days overlap therapy as Inpatient No Meds if any: Prescribed or Continued at Discharge Note: Overlap Therapy is Warfarin and Anticoagulant Meds if any: NOT Prescribed or Continued at Discharge
[2017-04-28 09:19] LABS: GRANULOCYTE % 90.1 % (42.2-75.2); WHITE BLOOD CELL COUNT 9.8 /CUMM (4.8-10.8)
[2017-04-28] MEDS ORDERED: ZOFRAN ODT4 M1 SL (11:23)
[2017-04-28] MEDS ORDERED: IBUPROFEN800 M1 PO (11:23)
[2017-04-28] MEDS ORDERED: OMEPRAZOLE40 M1 PO (11:23)
--- NOTE | 2017-04-28 12:49 | PN- Gastroenterology ---
Assessment/Plan Assessment/Recommendations: Assessment: Ms. Trevizo is a 46 year old female with gallstones who presented on Monday night with what is most likely a passed gallstone. She had an MRCP yesterday that was negative for choledocolithiasis and as her bilirubin continues to improve will continue to hold off on an ERCP. Her LFTs are still moderately elevated, but I suspect they will continue to improve with time. Recommendations: 1. Diet as tolerated 2. Analgesia as needed 3. Follow LFTs and consideration will be given for further diagnostic interventions if they remain elevated as an outpatient. If she continue to do well consideration should be given to discharge her later today or in the am to follow up as an outpatient to make sure her LFTs normalize. Problem List: 1. Gallstones 2. Cholelithiasis 3. Hyperbilirubinemia 4. Transaminitis Subjective Subjective: pt s/p negative MRCP yesterday followed by an uneventful laproscopic CCY. currently feeling well without significant pain and is tolerating liquids without vomiting. Objective Vital Signs and I&Os Vital Signs Date Time Temp Pulse Resp B/P B/P Pulse O2 O2 Flow FiO2 Mean Ox Delivery Rate 04/28 1136 Room Air 04/28 0711 97.7 69 18 126/81 98 Room Air 04/28 0000 Nasal 2.0L Cannula 04/27 2200 97.8 73 18 133/87 98 Nasal 2.0L Cannula 04/27 2122 97.8 86 18 149/93 100 Nasal 2.0L Cannula 04/27 2030 100 Nasal 2.0L Cannula 04/27 1535 99.1 75 18 127/67 98 Room Air Room Air Intake & Output 04/28 1600 04/28 0400 04/27 1600 04/27 0400 04/26 1600 04/26 0400 Intake Total 520 220 600 Output Total 1000 800 350 Balance -480 -580 250 Intake, IV 400 100 600 Intake, Oral 120 120 0 Output, Urine 1000 800 350 Patient 170 lb 169 lb Weight Weight Bed scale Reported by Patient Measurement Method Physical Exam General Appearance: well developed/nourished, no apparent distress, alert, comfortable Head: atraumatic, normal appearance Respiratory: normal breath sounds, chest non-tender, no respiratory distress Cardiovascular: regular rate/rhythm Abdomen: normal bowel sounds, soft, tenderness Rectal: deferred Neurologic/Psychiatric: no motor/sensory deficits, awake, alert, oriented x 3 Skin: intact, normal color Current Medications: Current Medications Sig/Jc Start time Last Medication Dose Route Stop Time Status Admin Acetaminophen 650 MG Q4P PRN 04/27 1800 AC PO Acetaminophen 1,000 MG .STK-MED ONE 04/27 1628 DC IV 04/27 1629 Dextrose 25 GM ONCE ONE 04/27 1600 DC 04/27 IV 04/27 1601 1545 Dextrose/Sodium 1,000 ML Q20H 04/27 1700 AC Chloride IV Enoxaparin Sodium 40 MG DAILY 04/28 1000 AC SC Enoxaparin Sodium 40 MG DAILY 04/27 1000 DC 04/27 SC 1033 Fentanyl Citrate 250 MCG .STK-MED ONE 04/27 1628 DC IM 04/27 1629 Hydromorphone HCl 0.2 MG Q3P PRN 04/27 1800 AC IV Ketorolac 30 MG Q6 04/27 2359 AC 04/28 Tromethamine IV 04/29 0601 1146 Meperidine HCl 50 MG .STK-MED ONE 04/27 1841 DC IM 04/27 1842 Midazolam HCl 2 MG .STK-MED ONE 04/27 1628 DC IM 04/27 1629 Morphine Sulfate 2 MG Q6P PRN 04/27 0045 DC IV Ondansetron HCl 4 MG Q6P PRN 04/26 2315 AC 04/28 IV 1244 Oxycodone HCl 5 MG Q4-6 PRN PRN 04/27 1800 AC PO Oxycodone HCl 10 MG Q4-6 PRN PRN 04/27 1800 AC PO Scopolamine HBr 1 PAT .STK-MED ONE 04/27 1628 DC TOP 04/27 1629 Sodium Chloride 1,000 ML Q13H 04/26 2315 DC 04/27 IV 04/28 0114 1201 Results Pertinent Lab Results: Laboratory Tests 04/28 04/27 0724 0600 Chemistry Sodium (137 - 145 mmol/L) 141 Cancelled Potassium (3.5 - 5.1 mmol/L) 3.9 Cancelled Chloride (98 - 107 mmol/L) 107 Cancelled Carbon Dioxide (22 - 30 mmol/L) 18 L Cancelled Anion Gap (5 - 16) 15 Cancelled BUN (7 - 17 mg/dL) 3 L Cancelled Creatinine (0.5 - 1.0 mg/dL) 0.5 Cancelled Estimated GFR (>60 ml/min) > 60 BUN/Creatinine Ratio (7 - 25 %) 6.0 L Cancelled Total Bilirubin (0.2 - 1.3 mg/dL) 1.1 Direct Bilirubin (< 0.4 mg/dL) 0.5 H AST (14 - 36 U/L) 173 H ALT (9 - 52 U/L) 481 H Alkaline Phosphatase (<127 U/L) 165 H Total Protein (6.3 - 8.2 g/dL) 6.2 L Albumin (3.5 - 5.0 g/dL) 3.4 L Hematology CBC w Diff NO MAN DIFF REQ WBC (4.8 - 10.8 /CUMM) 9.8 RBC (4.20 - 5.40 /CUMM) 4.32 Hgb (12.0 - 16.0 G/DL) 12.0 Hct (37 - 47 %) 35.9 L MCV (81.0 - 99.0 FL) 83.0 MCH (27.0 - 31.0 PG) 27.7 RDW (11.5 - 14.5 %) 14.5 Plt Count (/CUMM) Gran % (42.2 - 75.2 %) 90.1 H Lymphocytes % (20.5 - 51.1 %) 5.2 L Monocytes % (1.7 - 9.3 %) 4.6 Eosinophils % (0 - 5 %) 0 Basophils % (0.0 - 2.0 %) 0.1 Absolute Granulocytes (1.4 - 6.5 /CUMM) 8.8 H Absolute Lymphocytes (1.2 - 3.4 /CUMM) 0.5 L Absolute Monocytes (0.10 - 0.60 /CUMM) 0.5 Absolute Eosinophils (0.0 - 0.7 /CUMM) 0 Absolute Basophils (0.0 - 0.2 /CUMM) 0 PUBS MCHC (33.0 - 37.0 G/DL) 33.4 04/27 04/26 0549 2150 Chemistry Sodium (137 - 145 mmol/L) 143 Potassium (3.5 - 5.1 mmol/L) 3.6 Chloride (98 - 107 mmol/L) 107 Carbon Dioxide (22 - 30 mmol/L) 22 Anion Gap (5 - 16) 13 BUN (7 - 17 mg/dL) 7 Creatinine (0.5 - 1.0 mg/dL) 0.7 Estimated GFR (>60 ml/min) > 60 BUN/Creatinine Ratio (7 - 25 %) 10.0 Total Bilirubin (0.2 - 1.3 mg/dL) 2.2 H Direct Bilirubin (< 0.4 mg/dL) 0.7 H AST (14 - 36 U/L) 539 H ALT (9 - 52 U/L) 728 H Alkaline Phosphatase (<127 U/L) 170 H Total Protein (6.3 - 8.2 g/dL) 6.2 L Albumin (3.5 - 5.0 g/dL) 3.6 Total Beta HCG (NEGATIVE) NEGATIVE Hematology CBC w Diff NO MAN DIFF REQ WBC (4.8 - 10.8 /CUMM) 3.9 L RBC (4.20 - 5.40 /CUMM) 4.12 L Hgb (12.0 - 16.0 G/DL) 11.6 L Hct (37 - 47 %) 34.2 L MCV (81.0 - 99.0 FL) 83.0 MCH (27.0 - 31.0 PG) 28.0 RDW (11.5 - 14.5 %) 14.5 Plt Count (130 - 400 /CUMM) 204 MPV (7.4 - 10.4 FL) 9.0 Gran % (42.2 - 75.2 %) 56.0 Lymphocytes % (20.5 - 51.1 %) 31.3 Monocytes % (1.7 - 9.3 %) 8.3 Eosinophils % (0 - 5 %) 3.8 Basophils % (0.0 - 2.0 %) 0.6 Absolute Granulocytes (1.4 - 6.5 /CUMM) 2.2 Absolute Lymphocytes (1.2 - 3.4 /CUMM) 1.2 Absolute Monocytes (0.10 - 0.60 /CUMM) 0.3 Absolute Eosinophils (0.0 - 0.7 /CUMM) 0.2 Absolute Basophils (0.0 - 0.2 /CUMM) 0 PUBS MCHC (33.0 - 37.0 G/DL) 33.8 Urines Urinalysis MOD H Urine Color (YEL,AMB,STR) YEL Urine Clarity (CLEAR) HAZY H Urine pH (5.0 - 8.0) 6.0 Ur Specific [place] (1.001 - 1.035) 1.015 Urine Protein (NEG,<30 MG/DL) NEG Urine Ketones (NEG) 15 H Urine Nitrite (NEG) NEG Urine Bilirubin (NEG) POS@ICTO H Urine Urobilinogen (0.1 - 1.0 EU/dl) 4.0 H Ur Leukocyte Esterase (NEG) TRACE H Ur Microscopic SEDIMENT EXAMINED Urine RBC (0 - 5 /HPF) RARE Urine WBC (0 - 2 /HPF) 1-3 H Ur Epithelial Cells (NONE,FEW) MOD H Urine Bacteria (NEG/NONE) MOD H Urine Mucus (FEW,NONE) FEW Urine Hemoglobin (NEG) TRACE-INTACT Urine Glucose (N MG/DL) NEG 04/26 1715 Chemistry Sodium (137 - 145 mmol/L) 142 Potassium (3.5 - 5.1 mmol/L) 3.9 Chloride (98 - 107 mmol/L) 102 Carbon Dioxide (22 - 30 mmol/L) 27 Anion Gap (5 - 16) 13 BUN (7 - 17 mg/dL) 10 Creatinine (0.5 - 1.0 mg/dL) 0.8 Estimated GFR (>60 ml/min) > 60 BUN/Creatinine Ratio (7 - 25 %) 12.5 Glucose (65 - 99 mg/dL) 104 H Calcium (8.4 - 10.2 mg/dL) 9.7 Total Bilirubin (0.2 - 1.3 mg/dL) 4.8 H Direct Bilirubin (< 0.4 mg/dL) 2.7 H AST (14 - 36 U/L) 861 H ALT (9 - 52 U/L) 972 H Alkaline Phosphatase (<127 U/L) 200 H Troponin I (< 0.11 ng/ml) 0.02 Total Protein (6.3 - 8.2 g/dL) 7.6 Albumin (3.5 - 5.0 g/dL) 4.6 Globulin (1.9 - 4.2 gm/dL) 3.0 Albumin/Globulin Ratio (1.1 - 2.2 %) 1.5 Amylase (30 - 110 U/L) 32 Lipase (23 - 300 U/L) 71 Hematology CBC w Diff NO MAN DIFF REQ WBC (4.8 - 10.8 /CUMM) 4.2 L RBC (4.20 - 5.40 /CUMM) 4.56 Hgb (12.0 - 16.0 G/DL) 12.7 Hct (37 - 47 %) 38.3 MCV (81.0 - 99.0 FL) 84.1 MCH (27.0 - 31.0 PG) 27.8 RDW (11.5 - 14.5 %) 14.5 Plt Count (130 - 400 /CUMM) 233 MPV (7.4 - 10.4 FL) 10.1 Gran % (42.2 - 75.2 %) 69.5 Lymphocytes % (20.5 - 51.1 %) 20.5 Monocytes % (1.7 - 9.3 %) 7.4 Eosinophils % (0 - 5 %) 1.8 Basophils % (0.0 - 2.0 %) 0.8 Absolute Granulocytes (1.4 - 6.5 /CUMM) 2.9 Absolute Lymphocytes (1.2 - 3.4 /CUMM) 0.9 L Absolute Monocytes (0.10 - 0.60 /CUMM) 0.3 Absolute Eosinophils (0.0 - 0.7 /CUMM) 0.1 Absolute Basophils (0.0 - 0.2 /CUMM) 0 PUBS MCHC (33.0 - 37.0 G/DL) 33.0 Imaging/Other Studies: SERVICE DATE: 04/27/17- EXAM TYPE: MRI - MRI-ABDOMEN EXAMINATION: MR ABDOMEN WITHOUT CONTRAST CLINICAL INFORMATION: Nausea, abdominal pain and abnormal liver function tests. COMPARISON: Abdomen ultrasound from 04/26/2017. Abdomen CT from 04/03/2017. TECHNIQUE: Noncontrast imaging of the abdomen was performed on a high-field 1.5 Desiree magnet using standard cholangiopancreatography protocol. FINDINGS: Lung bases are unremarkable. Diffuse hepatic steatosis is evident on the opposed phase gradient echo images. Gallbladder exhibits diffuse T1 signal and T2 signal shortening from sludge, and the small calculi observed on 04/03/2017 and 04/26/2017 are suboptimally visualized given the presence of sludge. No gallbladder wall edema or pericholecystic fluid. Common bile duct is normal and measures 0.4 cm diameter. No intrahepatic or extrahepatic bile duct dilatation. No evidence of choledocholithiasis. Pancreas is normal. No pancreatic divisum or peripancreatic edema. Spleen is normal; it measures up to 11.5 cm maximum dimension. No focal splenic lesion. Adrenal glands are normal. Kidneys are normal in size. No hydronephrosis. There are 0.9 cm and 1 cm cysts of the lower pole of the left kidney. Abdominal aorta is normal in size. No periportal, mesenteric or retroperitoneal lymphadenopathy. Stomach is normal. The visualized bowel loops are normal in caliber. No ascites. Abdominal wall is unremarkable. There is a small hemangioma of the L4 vertebral body. No suspicious osseous lesions. IMPRESSION: 1. Diffuse hepatic steatosis. 2. Gallbladder contains sludge and calculi. No MR imaging evidence of acute cholecystitis, choledocholithiasis or biliary tract obstruction.
[2017-04-28 13:31] VITALS: BP 120/70
--- NOTE | 2017-04-28 16:32 | PN- Student ---
Subjective Subjective: Full H&P: HPI: Ms. Radha avery is 46-year-old female who presented to the ED on 04/26/2017 with a CC of severe abdominal pain. The patient has had a few similar episodes in the past, with the first one occuring this past , when she started experiencing epigastric and RUQ abdominal pain, prompting her to visit [facility]. A CT scan was done at the time and revealed evidence of cholelithiasis without acute cholecystitis, the patient was discharged on ketorolac and Zofran. This current episode began on Monday, whe she experienced a rapid onset of sharp epigastric and RUQ pain that radiates to the umbilicus & lower thorax in a band like pattern. The patient states that the episode may have been prompted by her eating a bite of something containing cheese, and that he pain gets worse after she eats. The pain is associated with nausea, resulting in poor oral intake and decreased appetite. The patient states the pain had been very severe for the past two days but she waited until today because she had an appointment with her PCP, who ended up tellingherjoee should come in to the ER. PMHx:
== END 2017-04-28 20:51 | DRG 419 ==
LOC: ERH 17:07 → 2NB 22:50 → ERHI 22:50 → 2NB 22:50 → EDBEDREQDT 04-27 18:25 → EDBEDREQ 04-27 18:25 → EDBEDREQTM 04-27 18:25 → ENRESERV 04-27 19:06 → ENTRNSPT 04-27 19:37 → EDTRNSPTSTS 04-27 19:39 → 2NB 04-27 19:58 → CMPTRNSPT 04-27 20:14 → ENTRNSPT 04-28 20:29 → EDTRNSPTSTS 04-28 20:47 → 2NB 04-28 20:51 → CMPTRNSPT 04-28 20:59
PROVIDERS: Emergency Medicine; Internal Medicine
PROC: 0FT44ZZ Resection of Gallbladder, Percutaneous Endoscopic Approach (ICD-10-PCS; principal; 2017-04-27)
DX: K80.20 Calculus of gallbladder without cholecystitis without obstruction (principal); K76.0 Fatty (change of) liver, not elsewhere classified; E80.6 Other disorders of bilirubin metabolism; R74.0 Nonspecific elevation of levels of transaminase and lactic acid dehydrogenase [LDH]; N20.0 Calculus of kidney
CPT/HCPCS: 2NBSP; 74181; ERO; 36415; 81001; 82436; 93005; 93010; 96361; 96374; 96375; J0131; J0690; J1170; J1650; J1885; J2405; J7042

== ENCOUNTER 2017-11-15 15:56 | Emergency (ER) | payer OTHER ==
[~2017-11-15] VITALS: Ht 165.1 cm; Wt 64.0 kg
[~2017-11-15 15:56] MED LIST changes: +IBUPROFEN800 M1 PO; +OMEPRAZOLE40 M1 PO
[2017-11-15 16:27] LABS: ABSOLUTE BASOPHIL COUNT 0 /CUMM (0.0-0.2); ABSOLUTE EOSINOPHIL COUNT 0 /CUMM (0.0-0.7); ABSOLUTE GRANULOCYTE CT 5.9 /CUMM (1.4-6.5); ABSOLUTE LYMPH COUNT 1.4 /CUMM (1.2-3.4); ABSOLUTE MONOCYTE COUNT 0.7 /CUMM (0.10-0.60); BASOPHIL % 0.4 % (0.0-2.0); EOSINOPHIL % 0.4 % (0-5); GRANULOCYTE % 73.6 % (42.2-75.2); HEMATOCRIT 36.2 % (37-47); MEAN CORPUSCULAR HGB 25.8 PG (27.0-31.0); MEAN CORPUSCULAR HGB CONC 33.3 G/DL (33.0-37.0); MEAN CORPUSCULAR VOLUME 77.4 FL (81.0-99.0); PLATELET COUNT 221 /CUMM (130-400); RBC DISTRIBUTION WIDTH 21.5 % (11.5-14.5); RED BLOOD CELL CT 4.68 /CUMM (4.20-5.40)
--- NOTE | 2017-11-15 18:00 | ED GENERAL ADULT ---
History of Present Illness General Chief Complaint: General Adult Stated Complaint: MULTIPLE COMPLAINTS Source: patient, family Exam Limitations: poor historian Vital Signs & Intake/Output Vital Signs & Intake/Output ED Intake and Output 11/16 0000 11/15 1200 Intake Total Output Total Balance Patient 141 lb Weight Allergies Coded Allergies: morphine (NAUSEA / VOMITING 08/04/16) Reconcile Medications Calcium Carbonate (Calci-Chew) (Unknown Strength) TAB.CHEW (Unknown Dose) PO DAILY SUPPLEMENT (Reported) Cholecalciferol (Vitamin D3) (Vitamin D3) 5,000 UNIT/ML DROPS 5,000 UNITS PO DAILY SUPPLEMENT (Reported) Cranberry Extract (Cranberry) (Unknown Strength) CAPSULE (Unknown Dose) PO DAILY SUPPLEMENT (Reported) Hydroxyzine HCl (hydrOXYzine HCl) 25 MG TABLET 1-2 TAB PO Q8H PRN ANXIETY Lactobacillus Acidophilus (Acidophilus) 1 EACH CAPSULE 1 CAP PO DAILY SUPPLEMENT (Reported) Nystatin 100,000 UNIT/ML ORAL.SUSP 5 ML PO 4 TIMES/DAY ORAL THRUSH Omeprazole 40 MG CAPSULE. 1 CAP PO DAILY gastritis 2/2 nsaids Triage Note: 47 YEAR OLD FEMALE TO TRIAGE WITH MULTIPLE COMPLAINTS, STATES THAT SHE JUST HAS NOT FELT RIGHT LATELY, WENT TO A NATRIOPATHIC DOCTOR WHO GAVE HER DANDILION ROOT WHICH SHE TOOK MONDAY MADE HER FEEL LIKE HER THROAT WAS SWELLING STOPPED IT ON MONDAY, ALSO STATES THAT SHE HAS BEEN HAVING STOMACH ISSUES WHICH SHE IS GETTING GI WORK UP NEXT WEEK FOR, ALSO STATES THAT SHE HAS SOB ON EXERTION, LIKE HER HEAD IS IN A FOG AND LEGS TINGLING AND WEAK, HAS HISTORY OF ANEMIA AND HER PMD SENT HER FOR BLOOD WORK. HR 88, O2 SAT 99 % ON RA Triage Nurses Notes Reviewed? yes Onset: Abrupt Duration: week(s): (1-2), changing over time, continues in ED Timing: single episode today Injury Environment: home Severity: mild, moderate No Modifying Factors: none LMP (ages 10-50): unknown : No Patient currently breastfeeds: No HPI: 47-year-old female history of anxiety and anemia presents for evaluation of multiple complaints. Patient reports that she has "not felt right lately". She went to a naturopathic doctor about 1 week ago and was given multiple different things including a dandelion root which she took. After taking that she felt like her throat was closing and since has felt a foreign body sensation when she swallows. She has been able to eat and drink without difficulty. No drooling no coughing no shortness of breath. She states that she talk to her regular doctor about this he started her on omeprazole because she also has a history of acid reflux. She denies any nausea vomiting abdominal pain no diarrhea no chest pain no dizziness. She reports associated anxiety because of this. She also feels like her mouth is very dry and that her tongue is white. She has been feeling these vague complaints for about 2 weeks now. (Jason Orellana) Past History Travel History Traveled to [place] past 21 day No Medical History Any Pertinent Medical History? see below for history Neurological: NONE EENT: NONE Cardiovascular: NONE Respiratory: NONE Gastrointestinal: NONE Hepatic: NONE Renal: NONE Musculoskeletal: NONE Psychiatric: NONE Endocrine: NONE Blood Disorders: anemia Cancer(s): NONE BEVERAGE SERVER/Reproductive: endometriosis, OVARIAN CYSTS FIBROIDS Surgical History Surgical History: cholecystectomy, D&C twice, most recent in July 2016 Psychosocial History Who do you live with Patient and family Services at Home None What is your primary language Guatemalan Tobacco Use: Never used ETOH Use: denies use Illicit Drug Use: denies illicit drug use Family History Family History, If Any: FATHER (HTN,CAD, prostate CA). MOTHER (HTN, HLD). BROTHER (Cholecystitis). Hx Contributory? No (Jason Orellana) Review of Systems Review of Systems Constitutional: Reports: malaise, weakness. EENTM: Reports: throat swelling. Respiratory: Reports: no symptoms. Cardiovascular: Reports: no symptoms. GI: Reports: no symptoms. Genitourinary: Reports: no symptoms. Musculoskeletal: Reports: no symptoms. Skin: Reports: no symptoms. Neurological/Psychological: Reports: no symptoms. Hematologic/Endocrine: Reports: no symptoms. Immunologic/Allergic: Reports: no symptoms. All Other Systems: Reviewed and Negative (Jason Orellana) Physical Exam Physical Exam General Appearance: well developed/nourished, no apparent distress, alert, awake Head: atraumatic, normal appearance Eyes: Bilateral: normal appearance, PERRL, EOMI. Ears, Nose, Throat: normal pharynx, normal ENT inspection, hearing grossly normal, moist mucus membranes, no stridor pt handeling secretuions , no exudate on tongue Neck: normal inspection, supple, full range of motion Respiratory: normal breath sounds, chest non-tender, no respiratory distress, lungs clear Cardiovascular: regular rate/rhythm, normal peripheral pulses Peripheral Pulses: 2+ radial (R), 2+ radial (L) Gastrointestinal: normal bowel sounds, soft, non-tender, no organomegaly Back: normal inspection, normal range of motion, no vertebral tenderness Extremities: normal inspection, normal range of motion, no edema Neurologic/Psych: no motor/sensory deficits, awake, alert, oriented x 3, normal gait, normal mood/affect Skin: intact, normal color, warm/dry Lymphatic: no anterior cervical lupe Core Measures ACS in differential dx? No CVA/TIA Diagnosis: No Sepsis Present: No Sepsis Focused Exam Completed? No (Paco BEVERLY,Jason) Progress Differential Diagnoses I considered the following diagnoses in my evaluation of the patient: [Allergic reaction, anxiety, esophagitis, GERD, malignancy, medication side effect, oral candidiasis, esophageal candidiasis] Plan of Care: Orders Procedure Date/time Status Add-on Test (ER Only) 11/15 1738 Active TROPONIN LEVEL 11/15 1609 Complete EKG 11/15 1603 Active URINE 11/15 1602 Complete URINALYSIS 11/15 1602 Complete TSH REFLEX 11/15 1602 Complete MAGNESIUM 11/15 1602 Complete LYME TITRE 11/15 1602 Active COMPREHENSIVE METABOLIC PANEL 11/15 1602 Complete CBC WITHOUT DIFFERENTIAL 11/15 1602 Complete Laboratory Tests 11/15/17 1624: Urine Color YEL, Urine Clarity CLEAR, Urine pH 6.0, Ur Specific [place] 1.010, Urine Protein NEG, Urine Ketones NEG, Urine Nitrite NEG, Urine Bilirubin NEG, Urine Urobilinogen 0.2, Ur Leukocyte Esterase NEG, Ur Microscopic SEDIMENT EXAMINED, Urine RBC RARE, Urine WBC 1-3 H, Ur Epithelial Cells MOD H, Urine Bacteria RARE H, Urine Mucus RARE, Urine Hemoglobin TRACE-INTACT, Urine Glucose NEG, Urine Test NEGATIVE 11/15/17 1609: Anion Gap 10, Estimated GFR > 60, BUN/Creatinine Ratio 17.1, Glucose 110 H, Calcium 9.6, Magnesium 2.0, Total Bilirubin 1.3, AST 21, ALT 18, Alkaline Phosphatase 77, Troponin I < 0.01, Total Protein 7.6, Albumin 4.5, Globulin 3.1, Albumin/Globulin Ratio 1.5, TSH &T3 &Free T4 Intrp 2.630, CBC w Diff NO MAN DIFF REQ, RBC 4.68, MCV 77.4 L, MCH 25.8 L, MCHC 33.3, RDW 21.5 H, MPV 10.0, Gran % 73.6, Lymphocytes % 17.4 L, Monocytes % 8.2, Eosinophils % 0.4, Basophils % 0.4, Absolute Granulocytes 5.9, Absolute Lymphocytes 1.4, Absolute Monocytes 0.7 H, Absolute Eosinophils 0, Absolute Basophils 0 11/15/17 1603: Troponin I Cancelled 11/15/17 1602: Lyme Disease Antibody Pending Patient is here for evaluation of multiple vague complaints. She repeatedly says she does not feel right she is having difficulty explaining further. She is concerned about her throat and thinks that there is something on her tongue. Exam of these areas is within normal limits. She is able to eat and drink without difficulty she does not have stridor she is handling secretions. Labs ordered and are unremarkable. Chest x-ray and EKG are unremarkable. Patient was medicated with a GI cocktail but felt like she did not like with lidocaine made her throat feel. She is requesting something for anxiety she was medicated with hydroxyzine is feeling somewhat better. She will be discharged with instructions to continue omeprazole as directed. Hydroxyzine as needed for anxiety and she was also given nystatin suspension for possible thrush. Advised her to follow-up with her doctor. Discussed return precautions in detail patient agrees the plan she appears clinically well vital signs are stable. Diagnostic Imaging: Viewed by Me: Radiology Read. Discussed w/RAD: Radiology Read. CXR Impression: PATIENT: CHINO PORTILLO PRESENT AGE: 47 PATIENT ACCOUNT NO: [id number] : 68 LOCATION: [facility] ORDERING PHYSICIAN: Jennifer BEVERLY SERVICE DATE: 11/15/17 EXAM TYPE: RAD - XRY-CHEST XRAY, TWO VIEWS EXAMINATION: XR CHEST CLINICAL INFORMATION: Shortness of breath COMPARISON: CTA of May 06, 2017 TECHNIQUE: 2 views of the chest were obtained. FINDINGS: No significant abnormality is noted involving the heart , lungs, mediastinum, bony thorax or soft tissues. IMPRESSION: No acute disease. DICTATED BY: Fermín Bergman MD DATE/TIME DICTATED:11/15/171805 FUR SEWER:RAD.POPE DATE/TIME TRANSCRIBED:11/15/171805 CONFIDENTIAL, DO NOT COPY WITHOUT APPROPRIATE AUTHORIZATION. <Electronically signed in Other Vendor System> SIGNED BY: Fermín Bergman MD 11/15/171809 Initial ED EKG: normal sinus rhythm, no ST T wave changes (Jason Orellana) Departure Departure Disposition: HOME OR SELF CARE Condition: Stable Clinical Impression Primary Impression: Anxiety Referrals: Cruzito Gilmore MD (PCP/Family) Additional Instructions: TAKE HYDROXYZINE 1-2 TABS EVERY 8 HOURS NEEDED FOR ANXIETY. [place]STATIN DIRECTED. FOLLOW U PWITH YOUR DOCTOR SOON POSSIBLE. RETURN WITH ANY CONCERNS. Departure Forms: Customer Survey General Discharge Information Prescriptions: Current Visit Scripts Hydroxyzine HCl (hydrOXYzine HCl) 1-2 TAB PO Q8H PRN ANXIETY #30 TAB Nystatin 5 ML PO 4 TIMES/DAY #200 ML (Jason Orellana) PA/APPLIANCE PAINTER AND REFINISHER Co-Sign Statement Statement: ED Attending supervision documentation- I saw and evaluated the patient. I have also reviewed all the pertinent lab results and diagnostic results. I agree with the findings and the plan of care as documented in the PA's/APPLIANCE PAINTER AND REFINISHER's documentation. x I have reviewed the ED Record and agree with the PA's/APPLIANCE PAINTER AND REFINISHER's documentation. [] Additions or exceptions (if any) to the PAs/APPLIANCE PAINTER AND REFINISHER's note and plan are summarized below: [] (Stewart CLAY,Florentino) Critical Care Note Critical Care Note Critical Care Time: non-applicable (Jason Orellana) ED Attending Observation Initial Observation Note: I have seen and personally examined CHINO PORTILLO on 11/16/17 at 1435. I agree with the current emergency department documentation. The disposition (admission or discharge) is uncertain at this time, she needs a period of observation for the following reason(s): The ED Nurse caring for this patient has been personally informed as to what the patient is being observed for. (Jason Orellana)
--- NOTE | 2017-11-15 18:10 | RADIOLOGY REPORT ---
EXAMINATION: XR CHEST CLINICAL INFORMATION: Shortness of breath COMPARISON: CTA of May 06, 2017 TECHNIQUE: 2 views of the chest were obtained. FINDINGS: No significant abnormality is noted involving the heart, lungs, mediastinum, bony thorax or soft tissues. IMPRESSION: No acute disease.
[2017-11-15 18:19] VITALS: BP 147/91
[2017-11-15] MEDS ORDERED: HYDROXYZINE HCL25 M3 PO (19:11)
[2017-11-15] MEDS ORDERED: NYSTATIN100000 UNI PO (19:12)
[2017-11-15] MEDS ORDERED: CRANBERRY200 MG PO (19:27)
[2017-11-15] MEDS ORDERED: ACIDOPHILUS1 EACH PO (19:27)
[2017-11-15] MEDS ORDERED: VITAMIN D35000 UNIT/ PO (19:28)
[2017-11-15] MEDS ORDERED: CALCI-CHEW500 MG PO (19:28)
== END 2017-11-15 19:33 ==
LOC: ERH 15:56
PROVIDERS: Physician Assistant
DX: F41.9 Anxiety disorder, unspecified (principal)
CPT/HCPCS: 86618; 71046; 81001; 81025; 93005; 93010